=== PATIENT | female | born 1945 | race Caucasian/White ===

== ENCOUNTER → 2017-02-10 | Outpatient (CLI) | payer MEDICARE ==
[~2017-02-10] MED LIST: /BUSP5TA OR; ACET65TA PO; ANEXIA PO; CALCTAB22 OR; HYDR25TA6 OR; IBUP600T OR; LISI20TA5 OR; SIMV10TA2 OR; VIT D 2000 OR
--- NOTE | 2017-02-10 13:30 | REP ---
BILATERAL RIBS/PA CHEST, NINE VIEWS: HISTORY: Contusion. COMPARISON: 12/09/2012. The lungs are clear. The heart is normal in size. The pulmonary vasculature is normal in appearance. The bony structure is intact. IMPRESSION: No acute disease. Signed by Camron Bolton MD 02/10/2017 01:32 P
== END ==
LOC: M WUC 11:01
PROVIDERS: ATTEND Physician Assistant
DX: S20.212A Contusion of left front wall of thorax, initial encounter (principal); S20.211A Contusion of right front wall of thorax, initial encounter; X58.XXXA Exposure to other specified factors, initial encounter; Y92.89 Other specified places as the place of occurrence of the external cause; Y99.9 Unspecified external cause status; Y93.9 Activity, unspecified

== ENCOUNTER → 2017-08-26 | Outpatient (CLI) | payer MEDICARE ==
--- NOTE | 2017-08-28 06:37 | RADONC ---
RADIATION ONCOLOGY FOLLOWUP NOTE DATE: 08/26/2017 CHART NUMBER: [id number] DIAGNOSIS: Left breast cancer. STAGE: Stage I A, [id number]. DIAGNOSIS: Right breast cancer. STAGE: Stage III A, T3N1M0. ECOG PERFORMANCE STATUS: 0. FOLLOWUP NOTE: Ms. Treviño is a very pleasant, 72-year-old white female with the diagnosis of a stage I A, O2rR1P6, moderately differentiated infiltrating ductal carcinoma of the left breast as well as a stage III A, T3N1M0, moderately differentiated infiltrating ductal carcinoma of the right breast who is presenting to us today for routine followup visit 5 years post completion of external beam radiation therapy. The patient presents today reporting that she is doing quite well with no complaints at this time related to her radiation therapy or disease. She has no breast pain, chest wall pain or bone pain. REVIEW OF SYSTEMS: The patient's review of systems is noncontributory. Denies nausea, vomiting, fevers, chills, night sweats, diplopia, headaches, anxiety or depression, anorexia, weight loss, visual disturbances, chest pain, urinary or bowel difficulties, bone pain, or neurological problems. PHYSICAL EXAMINATION: The patient is a well-developed, well-nourished, 72-year-old female in no acute distress. HEENT exam is normocephalic, atraumatic. Extraocular movements are intact. There is no palpable cervical, supraclavicular, infraclavicular, axillary, or inguinal lymphadenopathy present. Lungs are clear to auscultation and percussion. Heart has a regular rate and rhythm. Abdomen is benign with no hepatosplenomegaly, masses, or tenderness. The patient's left breast is free of masses or discharge. Her right chest wall is status post mastectomy. There is no evidence of nodularity, ulceration or recurrent disease. Skeletal examination reveals no tenderness to pressure or percussion of the bony skeleton. Extremities reveal no clubbing, cyanosis, or edema. Neurologic exam is grossly intact, as is the remainder of the physical examination. ASSESSMENT: The patient is clinically KUSH at this time will be seen by us again in 1 year for further followup. She will also continue be followed by her other physicians as well. cc: Dee Dee Carney MD, FACP Sonny Tam MD
== END ==
LOC: M ONCR 10:42
PROVIDERS: ATTEND Radiology Radiation Oncology
DX: C50.111 Malignant neoplasm of central portion of right female breast (principal); C50.112 Malignant neoplasm of central portion of left female breast

== ENCOUNTER 2017-09-17 12:09 | Day surgery (SDC) | payer MEDICARE ==
[~2017-09-17] VITALS: Ht 162.6 cm; Wt 83.0 kg
[~2017-09-17 12:09] MED LIST changes: +ALEN70TA39 PO; +AMLO5TAB2 PO; +ANAS1TAB PO; +BAYE81TA7 PO; +DULE100A IN; +LIDOCAINE 1% MDV 20ML VIAL SQ PRN; +MULT1TAB18 PO; +OFLOXACIN 0.3 % (OCUFLOX) OPTH SOL 5ML OS ONE; +OMEP20CA3 PO; +OMEP40CA2 PO; +PHENYLEPHRINE 2.5% OPHTH SOL 2ML OS ONE; +PROPARACAINE 0.5% OPHTH SOL 15ML OS ONE; +TROPICAMIDE 1% OPHTH SOLN 2ML OS ONE
[2017-09-17] MEDS ORDERED: BALANCED SALT IRRIGATION SOLUTION 500ML BAG (FOR OR EYE MACHINE) As Ordered ONE (13:14)
[2017-09-17] MEDS ORDERED: LIDOCAINE 0.75%/EPINEPHRINE 0.025% IN BSS 1ML SYR INTRACAMERAL (OR ONLY) As Ordered ONE (13:14)
[2017-09-17] MEDS ORDERED: POVIDONE-IODINE 5% OPHTH PREP SOL 30ML As Ordered ONE (13:14)
[2017-09-17] MEDS ORDERED: CEFUROXIME 1MG/0.1ML INTRACAMERAL INJ As Ordered ONE (13:14)
[2017-09-17] MEDS ORDERED: ACETYLCHOLINE OPHTH SOLN 1% 2ML (MIOCHOL-E) As Ordered ONE (13:14)
[2017-09-17] MEDS ORDERED: DUOVISC (0.50ML VISCOAT/0.55ML PROVISC) OPHTH KIT As Ordered ONE (13:15)
[2017-09-17] MEDS ORDERED: MIDAZOLAM INJ 2 MG/2 ML VIAL (J2250) As Ordered ONE (13:39)
[2017-09-17] MEDS ORDERED: fentaNYL 100 MCG/2 ML INJECTION (J3010) As Ordered ONE (13:39)
[2017-09-17 15:35] VITALS: BP 131/84
--- NOTE | 2017-09-18 19:37 | RO ---
DATE OF PROCEDURE: 09/17/2017 PREOPERATIVE DIAGNOSIS: Visually significant nuclear sclerotic cataract left eye. POSTOPERATIVE DIAGNOSIS: Visually significant nuclear sclerotic cataract left eye. PROCEDURE: Cataract extraction with use of phacoemulsification and placement of intraocular lens, AU00T0 21.5, left eye. SURGEON: Pardeep Luis DO [employer]BEST[employer] WORKER HELPER: ANESTHESIA: Local with monitored anesthesia care (MAC). COMPLICATIONS: None. POSTOPERATIVE CONDITION: Stable. INDICATION FOR SURGERY: Blurred vision left eye affecting patient's activities of daily living. DESCRIPTION OF PROCEDURE: The patient was seen in the preoperative area and properly identified. The correct operative eye was identified and marked. Attention was turned to that eye. The patient received topical antibiotics in the preoperative area. The patient then received topical dilating drops consisting of tropicamide and phenylephrine. The patient was then transferred to the operating room. The correct side was re-identified. The patient received topical anesthetics and antibiotics on the surface of the eye. The eye was prepped and draped in a sterile fashion. The upper and lower eyelids were isolated with Tegaderm tape, and the lids were held open with an adjustable speculum. Using a sideport blade, a paracentesis incision was made. Intraocular preservative-free lidocaine was then injected into the anterior chamber. Viscoelastic was then injected into the anterior chamber through the paracentesis. Using a 2.4 mm sharp-tipped keratome, the anterior chamber was entered via a temporal clear corneal incision. A continuous curvilinear capsulorrhexis was created with the aid of a 26-gauge cystotome and Utrata forceps. Hydrodissection was performed with balanced salt solution (BSS) on a blunt cannula until the nucleus was freely mobile. The crystalline lens was phacoemulsified and aspirated. Additional cohesive viscoelastic was placed into the capsular bag to deepen it. A 21.5 lens was placed into the capsular bag and confirmed by visualizing the continuous curvilinear capsulorrhexis. Additional irrigation and aspiration was used to remove cortical material and remaining viscoelastic. The clear corneal incision was hydrated with BSS on a blunt cannula. The lens was well positioned. The incisions were then tested for leaks and found to be negative. The eye was then palpated for appropriate pressure and adjusted accordingly with BSS. The eyelid speculum was carefully removed. A shield was placed over the eye. The patient tolerated the procedure well and was discharged to the recovery unit in a stable condition. [facility]OSPITALJohnna
== END 2017-09-17 15:35 | disposition home or self-care (01) ==
LOC: M SDC 12:09
PROVIDERS: ATTEND Ophthalmology
DX: H25.12 Age-related nuclear cataract, left eye (principal); I10 Essential (primary) hypertension; E78.5 Hyperlipidemia, unspecified; K21.9 Gastro-esophageal reflux disease without esophagitis; F41.9 Anxiety disorder, unspecified; F32.9 Major depressive disorder, single episode, unspecified; J44.9 Chronic obstructive pulmonary disease, unspecified; Z85.3 Personal history of malignant neoplasm of breast; Z87.891 Personal history of nicotine dependence; Z79.899 Other long term (current) drug therapy
CPT/HCPCS: 66984; J2250; J3010; V2632

== ENCOUNTER 2017-11-19 07:39 | Day surgery (SDC) | payer MEDICARE ==
[2017-11-19] MEDS: PHENYLEPHRINE 2.5% OPHTH SOL 2ML OD (08:35)
[2017-11-19] MEDS: OFLOXACIN 0.3 % (OCUFLOX) OPTH SOL 5ML OD (08:36)
[2017-11-19] MEDS: TROPICAMIDE 1% OPHTH SOLN 2ML OD (08:36)
[2017-11-19] MEDS: PROPARACAINE 0.5% OPHTH SOL 15ML OD (08:36)
[2017-11-19] MEDS: POVIDONE-IODINE 5% OPHTH PREP SOL 30ML As Ordered (09:28)
[2017-11-19] MEDS: BALANCED SALT IRRIGATION SOLUTION 500ML BAG (FOR OR EYE MACHINE) As Ordered (09:30)
[2017-11-19] MEDS ORDERED: MIDAZOLAM INJ 2 MG/2 ML VIAL (J2250) As Ordered (09:30)
[2017-11-19] MEDS: LIDOCAINE 0.75%/EPINEPHRINE 0.025% IN BSS 1ML SYR INTRACAMERAL (OR ONLY) As Ordered (09:30)
[2017-11-19] MEDS: ACETYLCHOLINE OPHTH SOLN 1% 2ML (MIOCHOL-E) As Ordered (09:30)
[2017-11-19] MEDS ORDERED: fentaNYL 100 MCG/2 ML INJECTION (J3010) As Ordered (09:30)
[2017-11-19] MEDS: CEFUROXIME 1MG/0.1ML INTRACAMERAL INJ As Ordered (09:30)
[2017-11-19] MEDS: DUOVISC (0.50ML VISCOAT/0.55ML PROVISC) OPHTH KIT As Ordered (09:30)
== END 2017-11-19 10:25 | disposition home or self-care (01) ==
LOC: M SDC 07:39
DX: H25.11 Age-related nuclear cataract, right eye (principal); I10 Essential (primary) hypertension; J44.9 Chronic obstructive pulmonary disease, unspecified; K21.9 Gastro-esophageal reflux disease without esophagitis; E78.5 Hyperlipidemia, unspecified; F41.9 Anxiety disorder, unspecified; M81.0 Age-related osteoporosis without current pathological fracture; J70.1 Chronic and other pulmonary manifestations due to radiation; Z85.3 Personal history of malignant neoplasm of breast; Z92.3 Personal history of irradiation; Z92.21 Personal history of antineoplastic chemotherapy; E04.1 Nontoxic single thyroid nodule; M19.90 Unspecified osteoarthritis, unspecified site; Z79.899 Other long term (current) drug therapy; Z79.51 Long term (current) use of inhaled steroids; Z79.82 Long term (current) use of aspirin
CPT/HCPCS: 66984

== ENCOUNTER → 2018-07-13 | Outpatient (CLI) | payer MEDICARE ==
[2018-07-13 13:50] LABS: BASO # 0.1 10^3/uL (0.0-0.2); BASO % 0.9 % (0.0-1.0); EOS # 0.1 10^3/uL (0.0-0.50); EOS % 1.3 % (0.0-3.0); HEMATOCRIT 49.1 % (36.0-47.0); IMMATURE GRANULOCYTE % 0.4 % (0-3.0); LYMPH # 1.4 10^3/uL (1.5-4.5); MEAN CORPUSCULAR HEMOGLOBIN 30.7 pg (27.0-33.0); MEAN CORPUSCULAR HGB CONC 32.6 g/dl (32.0-36.5); MEAN CORPUSCULAR VOLUME 94.1 fl (80.0-96.0); MONO # 0.7 10^3/uL (0.0-0.8); MONO % 10.5 % (0.0-5.0); NEUTROPHILS # 4.4 10^3/uL (1.8-7.7); NEUTROPHILS % 65.9 % (36.0-66.0); PLATELET COUNT, AUTOMATED 241 10^3/uL (150-450); RED BLOOD COUNT 5.22 10^6/uL (4.00-5.40); RED CELL DISTRIBUTION WIDTH 13.7 % (11.5-14.5); WHITE BLOOD COUNT 6.8 10^3/uL (4.0-10.0)
[2018-07-13 13:56] LABS: D-DIMER QUANT 367.2 ng/ml (<500)
== END ==
LOC: M SMT 11:22
DX: J44.9 Chronic obstructive pulmonary disease, unspecified (principal); I51.7 Cardiomegaly
CPT/HCPCS: 85025

== ENCOUNTER → 2018-08-25 | Outpatient (CLI) | payer MEDICARE | LOC: M ONCR 09:39 | DX: Z85.3 Personal history of malignant neoplasm of breast (principal) | CPT/HCPCS: G0463 ==

== ENCOUNTER → 2018-09-29 | Outpatient (CLI) | payer MEDICARE ==
[~2018-09-29] MED LIST changes: +ADVI200T PO; -ALEN70TA39 PO; +ALEN70TA57 PO; -AMLO5TAB2 PO; +AMLO5TAB4 PO; -ANAS1TAB PO; +ANAS1TAB2 PO; +BREO1INH3 INH; +CHLO125TA PO; -LIDOCAINE 1% MDV 20ML VIAL SQ PRN; +LOSA-4; -OFLOXACIN 0.3 % (OCUFLOX) OPTH SOL 5ML OS ONE; -PHENYLEPHRINE 2.5% OPHTH SOL 2ML OS ONE; -PROPARACAINE 0.5% OPHTH SOL 15ML OS ONE; +SIMV20TA2 PO; -TROPICAMIDE 1% OPHTH SOLN 2ML OS ONE; +VENTAER PO; +VITATAB11 PO; +rescue inhaler
--- NOTE | 2018-10-01 18:31 | ECHO ---
DATE OF PROCEDURE: 09/29/2018 REFERRING PHYSICIAN: Neal Pinon MD INDICATION: Shortness of breath. HEIGHT: 165 cm WEIGHT: 146 kg 2D MEASUREMENTS: Aortic annulus: 2.2 cm Left ventricle diastole: 4.08 cm Ventricular septum: 0.90 cm Posterior wall: 1.00 cm Left atrium: 4.1 cm Aortic root: 3.1 cm Proximal ascending aorta: 4.2 cm DOPPLER MEASUREMENTS: Aortic valve velocity: 82.3 cm/s LVOT velocity: 68.4 cm/s Mitral E velocity: 41.0 cm/s Mitral A velocity: 63.7 cm/s Mitral deceleration time: 236 ms Pulmonary artery systolic pressure 48-54 mmHg. MITRAL ANNULAR TISSUE DOPPLER: E prime septal: 8.0 cm/s E prime lateral: 6.0 cm/s DESCRIPTION: Rhythm was sinus. This was a moderately technically difficult echocardiogram. This was a 2D, M-mode, color flow Doppler and pulse wave Doppler examination that included mitral annular tissue Doppler. CONCLUSIONS: 1. Normal left ventricle internal dimensions and wall thickness. Normal regional left ventricle (LV) wall motion and wall thickening. Normal LV systolic function. Left ventricular ejection fraction (LVEF) 65% by visual estimate. Grade I LV diastolic dysfunction (impaired relaxation filling pattern). 2. Mild left atrial dilatation. 3. Suggestive of moderate elevation of pulmonary artery systolic pressure. 4. Mild dilatation of the proximal ascending aorta (4.2 cm). 5. Mild aortic valve sclerosis of a three-cuspid aortic valve. 6. Very small pericardial effusion (0.4 cm over the posterior basal segment of the left ventricle).
== END ==
LOC: M CARPUL 07:53
PROVIDERS: ATTEND Internal Medicine Cardiovascular Disease
DX: I31.3 Pericardial effusion (noninflammatory) (principal); I70.0 Atherosclerosis of aorta; R06.00 Dyspnea, unspecified

== ENCOUNTER → 2018-11-24 | Outpatient (CLI) | payer MEDICARE ==
[~2018-11-24] MED LIST changes: -AMLO5TAB4 PO; +AMLO5TAB6 PO; +INDA125TA PO; -LOSA-4; +LOSA100T50; +POTA1TAB23 PO
--- NOTE | 2018-11-24 16:53 | REP ---
WHOLE BODY BONE SCAN: Following the intravenous administration of 22 mCi technetium 99m MDP, the patient's whole body is imaged in the anterior and posterior projections with multiple oblique and lateral views obtained. There is a focus of increased uptake in the left anterior 6th rib. There appears to be an area of increased uptake which is less intense and more ill-defined in the anterior right third, fourth, fifth and sixth ribs. There is mild increased uptake in the anterior ends of the right seventh through ninth ribs. There is arthritic uptake in both feet. Renal and bladder activity are seen. IMPRESSION: Focus of increased uptake in the anterior left sixth rib. Ill-defined area of increased uptake in the anterior right third through sixth ribs, as well as mild focal increased uptake in the anterior end of right seventh through ninth ribs. Metastatic lesions cannot be excluded. Recommend CT of the chest with IV contrast in order to evaluate the ribs. Electronically Signed by Peter Plata MD 11/24/2018 08:18 P
== END ==
LOC: M RAD 08:15
PROVIDERS: ATTEND Internal Medicine Hematology & Oncology
DX: M89.8X8 Other specified disorders of bone, other site (principal); C50.919 Malignant neoplasm of unspecified site of unspecified female breast; E55.9 Vitamin D deficiency, unspecified
CPT/HCPCS: 78306; A9503

== ENCOUNTER → 2018-12-15 | Outpatient (CLI) | payer MEDICARE ==
[~2018-12-15] MED LIST changes: +BUSP10TA PO; +CALCTAB41 PO
--- NOTE | 2018-12-15 15:54 | REP ---
PET/CT: History: Restaging breast carcinoma. Originally diagnosed in February of 2012 bilaterally. Rib pain on the left. Comparisons: Comparison radionuclide bone scan November 24, 2018 showed a focus of increased uptake in the left anterior 6th rib. Lesser areas of increased uptake are seen in right anterior ribs. TECHNIQUE: 64 minutes following the intravenous injection of a 8.80 mCi dose of F-18 FDG, three-dimensional PET scintigraphy is acquired from the skull base to the proximal thighs. Triplanar noncontrast CT scanning is acquired through the same anatomic range for attenuation correction, and image registration with scan parameters optimized to minimize radiation exposure to the patient. PET scintigraphy and CT datasets were fused and displayed on a workstation with multiplanar and projection display capability. PET/CT Findings: The patient is status post right mastectomy. There are clips in right axilla. There is an area of linear fibrosis in the right apex and another small area of linear fibrosis is seen in the left lung base. There are linearly aligned areas of sclerosis in the anterior left 5th and 6th and possibly 7th ribs. Similar linearly adjacent areas of subtle contour deformity and sclerosis are seen in the anterior 5th and 6th ribs on the right. These areas correspond to the areas of bone scan activity. The pattern is suggestive of healed or healing fractures. The only area of increased uptake on PET scintigraphy is the left anterior 6th rib sclerotic area where maximum standard uptake value is 2.46. Bone marrow background uptake in the vertebral column extends up to SUV values of 3.0 in this patient. The changes in the left 6th anterior rib are equivocal scintigraphically. On CT images they appear to be old fractures. No other abnormal skeletal hypermetabolic uptake is seen. There is no abnormal uptake in the pulmonary parenchyma or elsewhere in the chest. Head and neck soft tissues are unremarkable. No abnormal hypermetabolic uptake is seen in the abdomen or pelvis. Impression: PET/CT findings most compatible with healed or healing rib fractures anteriorly on both sides as discussed above. No definite evidence of metastatic disease. Electronically Signed by Aries Gar MD 12/15/2018 05:15 P
== END ==
LOC: M PLARAD 09:09
PROVIDERS: ATTEND Internal Medicine Hematology & Oncology
DX: C50.811 Malignant neoplasm of overlapping sites of right female breast (principal); C50.812 Malignant neoplasm of overlapping sites of left female breast; R07.81 Pleurodynia; Z90.11 Acquired absence of right breast and nipple
CPT/HCPCS: 78815; A9552

== ENCOUNTER → 2019-04-04 | Outpatient (CLI) | payer MEDICARE ==
[~2019-04-04] MED LIST changes: -ALEN70TA57 PO; +ALEN70TA74 PO
--- NOTE | 2019-04-04 10:22 | REP ---
Clinical: Left shoulder pain. Technique: Internal rotation, external rotation, and Y view of the left shoulder. Findings: Mild age-related cortical irregularity at the acromioclavicular joint is appreciated along with subtle suspected bulky osteophyte along the inferior rim of the glenoid. Subacromial space is normal. No acute fracture dislocation. No soft tissue calcifications or loose bodies identified. Impression: Mild/moderate arthritic changes. No evidence for calcific tendinopathy. Electronically Signed by John Solis MD 04/04/2019 10:13 A
== END ==
LOC: M RAD 09:53
PROVIDERS: ATTEND Physician Assistant Medical
DX: M25.712 Osteophyte, left shoulder (principal)

== ENCOUNTER → 2019-06-17 | Outpatient (CLI) | payer MEDICARE ==
[~2019-06-17] MED LIST changes: -OMEP20CA3 PO; +OMEP20CA4 PO
[2019-06-17 09:59] LABS: BASO % 0.8 % (0.0-1.0); EOS # 0.1 10^3/uL (0.0-0.5); EOS % 1.8 % (0.0-3.0); HEMATOCRIT 44.1 % (36.0-47.0); HEMOGLOBIN 14.5 g/dl (12.0-15.5); LYMPH # 1.3 10^3/uL (1.5-5.0); LYMPH % 24.9 % (24.0-44.0); MEAN CORPUSCULAR HEMOGLOBIN 31.6 pg (27.0-33.0); MEAN CORPUSCULAR HGB CONC 32.9 g/dl (32.0-36.5); MEAN CORPUSCULAR VOLUME 96.1 fl (80.0-96.0); MONO # 0.6 10^3/uL (0.0-0.8); MONO % 11.2 % (0.0-5.0); NEUTROPHILS # 3.1 10^3/uL (1.5-8.5); NEUTROPHILS % 60.7 % (36.0-66.0); PLATELET COUNT, AUTOMATED 213 10^3/uL (150-450); RED BLOOD COUNT 4.59 10^6/uL (4.00-5.40); WHITE BLOOD COUNT 5.1 10^3/uL (4.0-10.0)
[2019-06-17 10:27] LABS: ALBUMIN 3.9 GM/DL (3.2-5.2); ALT/SGPT 27 U/L (12-78); BILIRUBIN,TOTAL 0.6 MG/DL (0.2-1.0); BLOOD UREA NITROGEN 14 MG/DL (7-18); CALCIUM LEVEL 9.4 MG/DL (8.8-10.2); CARBON DIOXIDE LEVEL 29 MEQ/L (21-32); CHLORIDE LEVEL 106 MEQ/L (98-107); CREATININE FOR GFR 0.86 MG/DL (0.55-1.30); GLOMERULAR FILTRATION RATE > 60.0 (>39); GLUCOSE, FASTING 125 MG/DL (70-100); LDH LACTATE DEHYDROGENASE 249 U/L (84-246); POTASSIUM SERUM 3.9 MEQ/L (3.5-5.1); SODIUM LEVEL 140 MEQ/L (136-145); TOTAL PROTEIN 6.8 GM/DL (6.4-8.2)
== END ==
LOC: M LAB 08:47
PROVIDERS: ATTEND Internal Medicine Hematology & Oncology
DX: R97.1 Elevated cancer antigen 125 [CA 125] (principal); Z85.3 Personal history of malignant neoplasm of breast

== ENCOUNTER → 2019-08-13 | Outpatient (CLI) | payer MEDICARE ==
[~2019-08-13] MED LIST changes: -OMEP40CA2 PO; +OMEP40CA97 PO
--- NOTE | 2019-08-13 10:36 | REP ---
Clinical: Trauma. Technique: Frontal view of the chest with multiple views of the right hemithorax. Findings: Evidence of prior right mastectomy and axillary node dissection. Frontal view of the chest demonstrates chronic changes without acute cardiopulmonary process. Evaluation of the osseous structures is limited by osteopenia and degenerative changes. No definite acute rib fracture is appreciated although subtle nondisplaced injury cannot definitively be excluded. Impression: 1. Chronic stable changes to the chest and evidence of prior right mastectomy and axillary node dissection. 2. Osteopenia and degenerative changes limit examination. No obvious or displaced rib fracture identified. Subtle injury cannot definitively be excluded. Electronically Signed by John Solis MD 08/13/2019 10:28 A
== END ==
LOC: M WUC 10:05
PROVIDERS: ATTEND Physician Assistant
DX: M85.88 Other specified disorders of bone density and structure, other site (principal); S20.211A Contusion of right front wall of thorax, initial encounter

== ENCOUNTER → 2021-01-07 | Outpatient (CLI) | payer MEDICARE, MEDICAID ==
[~2021-01-07] MED LIST changes: -ALEN70TA74 PO; +ALEN70TA82 PO; +AMLO1TAB24 PO; -AMLO5TAB6 PO; +INCR1INH INH; +OMEP1CAP73 PO; -OMEP20CA4 PO; +POTA10TA17 PO; -SIMV20TA2 PO; +SIMV20TA22 PO; +VITA200028 PO
--- NOTE | 2021-01-07 09:52 | REPMRS ---
Patient History The patient states she had a clinical breast exam in December 2020. Patient is nulliparous. Family history of unknown cancer in mother. Taking tamoxifen for 5 years. Digital Woman Screen Mammo: January 07, 2021 - Exam #: [id number] Bilateral CC and MLO view(s) were taken. Technologist: Wanda Gonzalez Technologist Prior study comparison: September 12, 2019, left breast digital mammo screening bilat, performed at [facility]. September 08, 2018, left breast digital mammo screening bilat, performed at [facility]. September 07, 2017, left breast digital mammo screening bilat, performed at [facility]. FINDINGS: There are scattered fibroglandular densities. There has been no change in the appearance of the left breast parenchyma in the interval since the prior examination. No mass, architectural distortion, or microcalcific grouping has developed. No suspicious finding. 3-D tomosynthesis shows no additional findings. Assessment: BI-RADS/ACR category 2 mammogram. Benign Findings. Recommendation Routine screening mammogram of the left breast in 1 year. This patient's [facility] Lifetime Breast Cancer RIsk is estimated at 5.2 %. This mammogram was interpreted with the aid of an FDA-approved computer-aided dectection system. Electronically Signed By: Sergio Gar MD 01/07/21 [id number]
== END ==
LOC: M WHC 08:17
PROVIDERS: ATTEND Specialist
DX: Z12.31 Encounter for screening mammogram for malignant neoplasm of breast (principal); Z85.3 Personal history of malignant neoplasm of breast; Z90.11 Acquired absence of right breast and nipple

== ENCOUNTER → 2021-04-08 | Outpatient (CLI) | payer MEDICARE, MEDICAID ==
[~2021-04-08] MED LIST changes: +MECL-136 PO; +OMEP40CA4 PO; -OMEP40CA97 PO
--- NOTE | 2021-04-08 10:07 | REP ---
INDICATION: PERSONAL HX NICOTINE DEPENDENCE COMPARISON: 08/22/2014 TECHNIQUE: Axial noncontrast images from the thoracic inlet to the upper abdomen using low-dose lung screening technique (LDCT). FINDINGS: Chronic scarring at the right apex and to a lesser extent left apex are essentially unchanged compared to 2013. Lung alcaraz are relatively well aerated and without acute consolidation, suspicious nodule or mass. No effusion. No pneumothorax. Tracheobronchial tree is patent. Patient appears to be status post right mastectomy and axillary node dissection. IMPRESSION: Lung-RADS category 2. Stable findings. Management recommendations include annual low-dose CT surveillance. <Electronically signed by John Solis > 04/08/21 100
== END ==
LOC: M RAD 09:36
PROVIDERS: ATTEND Internal Medicine Pulmonary Disease
DX: Z12.2 Encounter for screening for malignant neoplasm of respiratory organs (principal); Z87.891 Personal history of nicotine dependence

== ENCOUNTER → 2021-05-10 | Outpatient (CLI) | payer MEDICARE, MEDICAID ==
[~2021-05-10] MED LIST changes: +E-Z-GAS II EFFERVESCENT PACKET (SODIUM BICARB./CITRIC ACID/SIMETHICONE) As Ordered ONE; +E-Z-HD 98% w/w 340GM SUSP BTL As Ordered ONE; +E-Z-PAQUE 96% w/w SUSP 176GM BTL As Ordered ONE
--- NOTE | 2021-05-10 19:35 | REP ---
INDICATION: ABD PAIN. COMPARISON: None. TECHNIQUE: The procedure was performed under the direct supervision of Dr. Gar. The images were reviewed with Dr. Gar. Liquid barium and gas producing crystals were given in the erect position as well as liquid barium in the prone oblique position in order to perform a double contrast upper GI examination. A combination of fluoroscopy, spot films and last image hold technology was utilized. 0.9 minutes of fluoro time was utilized for this procedure. FINDINGS: The mail distributor film shows no organomegaly or pathological masses. The intestinal gas pattern is non-specific. During the oral and pharyngeal stages of deglutition there is laryngeal penetration. Esophageal transport is prompt and efficient and there is no esophagitis, stricture or mucosal ring. There is a small sliding-type hiatal hernia. There is gastroesophageal reflux demonstrated to above the level of the tara. The stomach phillip are normally outlined. The rugal folds are smooth and regular. There is no gastritis neoplasm or ulcer disease. The duodenal phillip are normally outlined. The mucosal folds are smooth and regular. There is no duodenitis pancreatitis peptic ulcer disease or neoplasm. The visualized portion of the proximal small bowel appears normal in course and caliber. IMPRESSION: 1. There is laryngeal penetration. 2. There is a small sliding-type hiatal hernia. There is gastroesophageal reflux demonstrated to above the level of the tara. . <Electronically signed by Fredo Johnson > 05/10/21 183 <Electronically signed by Sergio Gar > 05/10/21 193
== END ==
LOC: M RAD 07:40
PROVIDERS: ATTEND Family Medicine
DX: K20.80 Other esophagitis without bleeding (principal); K44.9 Diaphragmatic hernia without obstruction or gangrene; K21.9 Gastro-esophageal reflux disease without esophagitis

== ENCOUNTER → 2021-11-01 | Outpatient (CLI) | payer MEDICARE, MEDICAID ==
[~2021-11-01] MED LIST changes: -E-Z-GAS II EFFERVESCENT PACKET (SODIUM BICARB./CITRIC ACID/SIMETHICONE) As Ordered ONE; -E-Z-HD 98% w/w 340GM SUSP BTL As Ordered ONE; -E-Z-PAQUE 96% w/w SUSP 176GM BTL As Ordered ONE; +LOSA100T45; -LOSA100T50
[2021-11-01 08:40] LABS: ALBUMIN 3.7 GM/DL (3.2-5.2); ALT/SGPT 38 U/L (12-78); BILIRUBIN,TOTAL 0.6 MG/DL (0.2-1.0); BLOOD UREA NITROGEN 20 MG/DL (7-18); CALCIUM LEVEL 9.5 MG/DL (8.8-10.2); CARBON DIOXIDE LEVEL 29 MEQ/L (21-32); CHLORIDE LEVEL 103 MEQ/L (98-107); CREATININE FOR GFR 0.96 MG/DL (0.55-1.30); GLOMERULAR FILTRATION RATE > 60.0 (>39); GLUCOSE, FASTING 114 MG/DL (70-100); POTASSIUM SERUM 4.1 MEQ/L (3.5-5.1); SODIUM LEVEL 141 MEQ/L (136-145)
== END ==
LOC: M LAB 07:26
PROVIDERS: ATTEND Physician Assistant
DX: I10 Essential (primary) hypertension (principal)

== ENCOUNTER → 2021-11-25 | Outpatient (CLI) | payer MEDICARE, MEDICAID | LOC: M SLEEP HO 08:15 | PROVIDERS: ATTEND Physician Assistant | DX: I51.7 Cardiomegaly (principal); G47.9 Sleep disorder, unspecified ==

== ENCOUNTER → 2022-03-12 | Outpatient (CLI) | payer MEDICARE, MEDICAID | LOC: M WHC 10:41 | PROVIDERS: ATTEND Specialist | DX: Z12.31 Encounter for screening mammogram for malignant neoplasm of breast (principal); Z92.29 Personal history of other drug therapy; Z85.3 Personal history of malignant neoplasm of breast; Z90.11 Acquired absence of right breast and nipple ==

== ENCOUNTER → 2022-05-06 | Outpatient (CLI) | payer MEDICARE, MEDICAID | LOC: M RAD 09:31 | PROVIDERS: ATTEND Internal Medicine Pulmonary Disease | DX: R91.1 Solitary pulmonary nodule (principal); Z87.891 Personal history of nicotine dependence ==

== ENCOUNTER → 2023-02-25 | Outpatient (CLI) | payer MEDICARE, MEDICAID ==
[~2023-02-25] MED LIST changes: -DULE100A IN; +INDA1.253 PO; -INDA125TA PO; -LOSA100T45; +LOSA100T46; +MOME13HF8 IN; +POTA-150 PO; -POTA10TA17 PO
[2023-02-25 14:11] LABS: BASO # 0.1 10^3/uL (0.0-0.2); BASO % 0.8 % (0.0-1.0); EOS # 0.1 10^3/uL (0.0-0.5); EOS % 1.4 % (0.0-3.0); HEMATOCRIT 47.7 % (36.0-47.0); HEMOGLOBIN 15.7 g/dl (12.0-15.5); LYMPH # 1.6 10^3/uL (1.5-5.0); LYMPH % 24.2 % (24.0-44.0); MEAN CORPUSCULAR HGB CONC 32.9 g/dl (32.0-36.5); MEAN CORPUSCULAR VOLUME 94.3 fl (80.0-96.0); MONO % 14.3 % (2.0-8.0); NEUTROPHILS # 3.9 10^3/uL (1.5-8.5); NEUTROPHILS % 58.7 % (36.0-66.0); PLATELET COUNT, AUTOMATED 155 10^3/uL (150-450); RED BLOOD COUNT 5.06 10^6/uL (4.00-5.40); WHITE BLOOD COUNT 6.7 10^3/uL (4.0-10.0)
[2023-02-25 14:43] LABS: ALBUMIN 3.9 G/DL (3.2-5.2); ALKALINE PHOSPHATASE 54 U/L (46-116); ALT/SGPT 31 U/L (7.0-40); AST/SGOT 26 U/L (<34); BILIRUBIN,TOTAL 0.5 MG/DL (0.3-1.2); BLOOD UREA NITROGEN 11 MG/DL (9-23); CALCIUM LEVEL 9.6 MG/DL (8.3-10.6); CARBON DIOXIDE LEVEL 29 MMOL/L (20-31); CHLORIDE LEVEL 106 MMOL/L (98-107); CHOLESTEROL LEVEL 162 MG/DL (<200); CHOLESTEROL RISK RATIO 2.68 (<5); CREATININE FOR GFR 0.78 MG/DL (0.55-1.30); GLOMERULAR FILTRATION RATE > 60.0 (>39); GLUCOSE, FASTING 96 MG/DL (74-106); HDL CHOLESTEROL 60.4 MG/DL (>40); LDL CHOLESTEROL 70.4 MG/DL (<100); NON-HDL-C 101.6 MG/DL; POTASSIUM SERUM 3.8 MMOL/L (3.5-5.1); SODIUM LEVEL 141 MMOL/L (136-145); TOTAL PROTEIN 6.5 G/DL (5.7-8.2); TRIGLYCERIDES LEVEL 156 MG/DL (<150)
== END ==
LOC: M PLALAB 09:58
PROVIDERS: ATTEND Family Medicine
DX: E78.5 Hyperlipidemia, unspecified (principal); I10 Essential (primary) hypertension; Z85.3 Personal history of malignant neoplasm of breast

== ENCOUNTER → 2023-03-13 | Outpatient (CLI) | payer MEDICARE, MEDICAID | LOC: M WHC 09:53 | PROVIDERS: ATTEND Family Medicine | DX: Z12.31 Encounter for screening mammogram for malignant neoplasm of breast (principal); Z85.3 Personal history of malignant neoplasm of breast ==

== ENCOUNTER → 2023-06-18 | Outpatient (CLI) | payer MEDICARE, MEDICAID ==
[~2023-06-18] MED LIST changes: +EQL50TAB2 PO; +ESSETAB4 PO; +LEXA1TAB PO; +ZINC1CAP PO
== END ==
LOC: M RAD 10:15
PROVIDERS: ATTEND Internal Medicine Pulmonary Disease
DX: Z12.2 Encounter for screening for malignant neoplasm of respiratory organs (principal); Z87.891 Personal history of nicotine dependence

== ENCOUNTER → 2024-03-15 | Outpatient (CLI) | payer MEDICARE, MEDICAID ==
[2024-03-15 13:18] LABS: HEMATOCRIT 47.3 % (36.0-47.0); HEMOGLOBIN 15.7 g/dl (12.0-15.5); MEAN CORPUSCULAR HEMOGLOBIN 31.3 pg (27.0-33.0); MEAN CORPUSCULAR HGB CONC 33.2 g/dl (32.0-36.5); MEAN CORPUSCULAR VOLUME 94.4 fl (80.0-96.0); PLATELET COUNT, AUTOMATED 211 10^3/uL (150-450); RED BLOOD COUNT 5.01 10^6/uL (4.00-5.40)
[2024-03-15 13:21] LABS: ALBUMIN 3.5 G/DL (3.2-5.2); ALKALINE PHOSPHATASE 70 U/L (46-116); ALT/SGPT 22 U/L (7.0-40); AST/SGOT 15 U/L (<34); BILIRUBIN,TOTAL 0.6 MG/DL (0.3-1.2); BLOOD UREA NITROGEN 13 MG/DL (9-23); CALCIUM LEVEL 9.4 MG/DL (8.3-10.6); CARBON DIOXIDE LEVEL 28 MMOL/L (20-31); CHLORIDE LEVEL 104 MMOL/L (98-107); CHOLESTEROL LEVEL 165 MG/DL (<200); CHOLESTEROL RISK RATIO 3.41 (<5); CREATININE FOR GFR 0.78 MG/DL (0.55-1.30); GLOMERULAR FILTRATION RATE > 60.0 (>39); GLUCOSE, FASTING 187 MG/DL (74-106); HDL CHOLESTEROL 48.3 MG/DL (>40); LDL CHOLESTEROL 89.9 MG/DL (<100); NON-HDL-C 116.7 MG/DL; POTASSIUM SERUM 3.8 MMOL/L (3.5-5.1); SODIUM LEVEL 140 MMOL/L (136-145); TOTAL PROTEIN 6.6 G/DL (5.7-8.2); TRIGLYCERIDES LEVEL 134 MG/DL (<150)
== END ==
LOC: M PLALAB 09:21
PROVIDERS: ATTEND Family Medicine
DX: I10 Essential (primary) hypertension (principal); E78.5 Hyperlipidemia, unspecified; K21.9 Gastro-esophageal reflux disease without esophagitis

== ENCOUNTER 2024-05-20 02:11 | Inpatient (IN) | payer MEDICARE, MEDICAID ==
[~2024-05-20] VITALS: Ht 165.1 cm; Wt 84.7 kg
[~2024-05-20 02:11] MED LIST changes: -LOSA100T46; +LOSA100T46 PO
[2024-05-20 02:50] LABS: BASO # 0.1 10^3/uL (0.0-0.2); BASO % 0.6 % (0.0-1.0); EOS # 0.1 10^3/uL (0.0-0.5); EOS % 0.9 % (0.0-3.0); HEMATOCRIT 45.3 % (36.0-47.0); HEMOGLOBIN 15.5 g/dl (12.0-15.5); LYMPH # 1.3 10^3/uL (1.5-5.0); LYMPH % 15.1 % (24.0-44.0); MEAN CORPUSCULAR HGB CONC 34.2 g/dl (32.0-36.5); MEAN CORPUSCULAR VOLUME 93.4 fl (80.0-96.0); MONO # 1.1 10^3/uL (0.0-0.8); MONO % 12.5 % (2.0-8.0); NEUTROPHILS # 6.3 10^3/uL (1.5-8.5); NEUTROPHILS % 70.3 % (36.0-66.0); PLATELET COUNT, AUTOMATED 195 10^3/uL (150-450); RED BLOOD COUNT 4.85 10^6/uL (4.00-5.40); WHITE BLOOD COUNT 8.9 10^3/uL (4.0-10.0)
[2024-05-20 02:52] LABS: APPEARANCE, URINE CLOUDY (CLEAR); BACTERIA, URINE AUTO NEGATIVE (NEGATIVE); BILIRUBIN, URINE AUTO NEGATIVE (NEGATIVE); BLOOD, URINE BLOOD NEGATIVE (NEGATIVE); COLOR, URINE AMBER (YELLOW); GLUCOSE, URINE (UA) AUTO NEGATIVE (NEGATIVE); KETONE, URINE AUTO NEGATIVE (NEGATIVE); LEUKOCYTE ESTERASE, URINE AUTO 3+ (NEGATIVE); MUCUS, URINE SMALL (NEGATIVE); NITRITE, URINE AUTO NEGATIVE (NEGATIVE); PROTEIN, URINE AUTO 1+ mg/dL (NEGATIVE); RBC, URINE AUTO 10 /HPF (0-3); SQUAMOUS EPITHELIAL CELL UR AU 4 /HPF (0-6); TRANSITIONAL EPITHELIAL AUTO 2 /HPF; WBC, URINE AUTO TNTC /HPF (0-3)
[2024-05-20 03:14] LABS: ALBUMIN 3.7 G/DL (3.2-5.2); BILIRUBIN,DIRECT 4.2 MG/DL (<0.4); BILIRUBIN,TOTAL 5.6 MG/DL (0.3-1.2); CALCIUM LEVEL 9.4 MG/DL (8.3-10.6); CREATININE FOR GFR 1.81 MG/DL (0.55-1.30); GLOMERULAR FILTRATION RATE 28.9 (>39); POTASSIUM SERUM 3.6 MMOL/L (3.5-5.1); TOTAL PROTEIN 6.8 G/DL (5.7-8.2)
[2024-05-20] MEDS ORDERED: ISOVUE-370 76% 100ML VIAL As Ordered ONE (04:01)
[2024-05-20] MEDS: MORPHINE 4 MG/ML 1ML VIAL IV PRN (04:29)
[2024-05-20] MEDS: ONDANSETRON 4MG 2ML VIAL IV ONE (04:29)
[2024-05-20 04:33] LABS: INR 1.06; PARTIAL THROMBOPLASTIN TIME 23.2 SECONDS (24.8-34.2); PROTHROMBIN TIME 13.5 SECONDS (12.5-14.5)
[2024-05-20] MEDS: LR 1,000 ML IV SCH ×2 (04:50→22:05)
[2024-05-20] MEDS: PIPERACILLIN/TAZOBACTAM SOD 4.5 GM in D5W MINI-BAG PLUS 50 ML IV ONE (05:59)
[2024-05-20] MEDS ORDERED: MOM 30ML SUSPENSION UDC PO PRN (06:05)
[2024-05-20] MEDS ORDERED: MULT-40 PO (06:24)
[2024-05-20] MEDS ORDERED: HOME MED LIST COMPLETE! XX SCH (06:25)
[2024-05-20] MEDS: INDAPAMIDE 1.25MG TABLET PO SCH (09:00)
[2024-05-20] MEDS: busPIRone 10 MG TAB PO SCH (09:00)
[2024-05-20] MEDS: ESCITALOPRAM OXALATE 10 MG TAB (LEXAPRO) PO SCH (09:00)
[2024-05-20] MEDS: HEPARIN SOD (PORCINE) 5000UNITS/ML 1ML VIAL/SYRINGE SC SCH (09:00)
[2024-05-20 09:08] VITALS: BP 83/54
[2024-05-20 09:55] VITALS: BP 92/57
[2024-05-20] MEDS: NS 500 ML IV ONE (10:25)
[2024-05-20] MEDS: cefTRIAXone SOD 1 GM in D5W MINI-BAG PLUS 50 ML IV SCH (11:35)
[2024-05-20] MEDS ORDERED: ALBUTEROL 90 MCG/ACT 8GM HFA INHALER XX PRN (11:55)
[2024-05-20 12:00] VITALS: BP 130/77; TEMP 97.9; O2SAT 95
[2024-05-20 13:00] LABS: BASO % 0.7 % (0.0-1.0); EOS # 0.1 10^3/uL (0.0-0.5); HEMATOCRIT 41.8 % (36.0-47.0); LYMPH # 1.1 10^3/uL (1.5-5.0); LYMPH % 18.8 % (24.0-44.0); MEAN CORPUSCULAR HEMOGLOBIN 31.4 pg (27.0-33.0); MEAN CORPUSCULAR HGB CONC 33.5 g/dl (32.0-36.5); MEAN CORPUSCULAR VOLUME 93.7 fl (80.0-96.0); MONO # 0.8 10^3/uL (0.0-0.8); MONO % 14.1 % (2.0-8.0); NEUTROPHILS # 3.8 10^3/uL (1.5-8.5); NEUTROPHILS % 64.6 % (36.0-66.0); PLATELET COUNT, AUTOMATED 159 10^3/uL (150-450); RED BLOOD COUNT 4.46 10^6/uL (4.00-5.40); WHITE BLOOD COUNT 5.9 10^3/uL (4.0-10.0)
[2024-05-20 13:24] LABS: C REACTIVE PROTEIN QUANTITATIV 1.7 MG/DL (<1.0)
[2024-05-20 13:28] LABS: ALBUMIN 3.1 G/DL (3.2-5.2); BILIRUBIN,DIRECT 3.3 MG/DL (<0.4); BILIRUBIN,TOTAL 4.4 MG/DL (0.3-1.2); CALCIUM LEVEL 8.4 MG/DL (8.3-10.6); CREATININE FOR GFR 2.39 MG/DL (0.55-1.30); POTASSIUM SERUM 3.9 MMOL/L (3.5-5.1)
[2024-05-20] MEDS: ISOVUE-300 61% 100ML VIAL As Ordered ONE (16:16)
[2024-05-20 16:18] VITALS: BP 102/66; TEMP 96.8; O2SAT 92
[2024-05-20] MEDS ORDERED: ONDANSETRON 4MG 2ML VIAL As Ordered ONE (19:01)
[2024-05-20] MEDS ORDERED: ROCURONIUM BROMIDE 50MG/5ML VIAL As Ordered ONE (19:01)
[2024-05-20] MEDS ORDERED: LIDOCAINE 2% 100MG/5ML SDV (FOR ANES.) As Ordered ONE (19:01)
[2024-05-20] MEDS ORDERED: propofoL 200 MG/20 ML VIAL As Ordered ONE (19:01)
[2024-05-20] MEDS ORDERED: fentaNYL 100 MCG/2 ML INJECTION As Ordered ONE (19:01)
[2024-05-20] MEDS: GLUCAGON INJ 1MG VIAL As Ordered ONE (21:03)
[2024-05-20] MEDS ORDERED: SUGAMMADEX SODIUM 500 MG/5 ML VIAL (BRIDION) As Ordered ONE (21:58)
[2024-05-20] MEDS ORDERED: HYDROMORPHONE HCL 0.5 MG/ 0.5 ML SYRINGE IV PRN (22:05)
[2024-05-20] MEDS ORDERED: ONDANSETRON 4MG 2ML VIAL IV PRN (22:05)
[2024-05-20] MEDS ORDERED: fentaNYL 100 MCG/2 ML INJECTION IV PRN (22:05)
[2024-05-20] MEDS ORDERED: oxyCODONE 5MG TAB PO PRN (22:05)
[2024-05-20 22:55] VITALS: BP 145/82; TEMP 96.6; O2SAT 94
[2024-05-20] MEDS: ONDANSETRON 4MG 2ML VIAL IV PRN (23:10)
[2024-05-20 23:30] VITALS: BP 146/83; TEMP 96.8; O2SAT 93
[2024-05-21] VITALS (7 sets, daily range): BP systolic 104–148; BP diastolic 60–86; TEMP 96.8–97.9; O2SAT 90–95
[2024-05-21] MEDS: PANTOPRAZOLE 40MG VIAL IV SCH (00:16)
[2024-05-21] MEDS: MORPHINE 4 MG/ML 1ML VIAL IV PRN (01:25)
[2024-05-21 06:43] LABS: HEMATOCRIT 39.8 % (36.0-47.0); HEMOGLOBIN 13.2 g/dl (12.0-15.5); MEAN CORPUSCULAR HEMOGLOBIN 31.6 pg (27.0-33.0); MEAN CORPUSCULAR HGB CONC 33.2 g/dl (32.0-36.5); MEAN CORPUSCULAR VOLUME 95.2 fl (80.0-96.0); PLATELET COUNT, AUTOMATED 152 10^3/uL (150-450); RED BLOOD COUNT 4.18 10^6/uL (4.00-5.40); WHITE BLOOD COUNT 7.1 10^3/uL (4.0-10.0)
[2024-05-21 07:04] LABS: ALBUMIN 2.9 G/DL (3.2-5.2); BILIRUBIN,TOTAL 2.3 MG/DL (0.3-1.2); CALCIUM LEVEL 8.2 MG/DL (8.3-10.6); CREATININE FOR GFR 2.32 MG/DL (0.55-1.30); GLOMERULAR FILTRATION RATE 21.7 (>39); MAGNESIUM LEVEL 1.6 MG/DL (1.8-2.4); POTASSIUM SERUM 3.6 MMOL/L (3.5-5.1); TOTAL PROTEIN 5.6 G/DL (5.7-8.2)
[2024-05-21] MEDS: MAG SULF 1GM/100ML (MAG RUN) 1 GM in IV 1 EA IV SCH (09:39)
[2024-05-21] MEDS: LIDOCAINE VISCOUS 2% SOLN 15ML UDC PO SCH (12:00)
[2024-05-21] MEDS: MAALOX 30 ML SUSP *UDC PO SCH (12:00)
[2024-05-21] MEDS: MORPHINE 2 MG/ML 1ML VIAL IV PRN (23:31)
[2024-05-22 05:00] VITALS: BP 138/60; TEMP 96.8; O2SAT 91
[2024-05-22 07:00] LABS: BASO % 0.4 % (0.0-1.0); EOS # 0.2 10^3/uL (0.0-0.5); HEMATOCRIT 37.2 % (36.0-47.0); HEMOGLOBIN 12.7 g/dl (12.0-15.5); LYMPH # 0.9 10^3/uL (1.5-5.0); LYMPH % 10.5 % (24.0-44.0); MEAN CORPUSCULAR HEMOGLOBIN 32.5 pg (27.0-33.0); MEAN CORPUSCULAR HGB CONC 34.1 g/dl (32.0-36.5); MEAN CORPUSCULAR VOLUME 95.1 fl (80.0-96.0); MONO % 11.7 % (2.0-8.0); NEUTROPHILS # 6.3 10^3/uL (1.5-8.5); NEUTROPHILS % 74.5 % (36.0-66.0); PLATELET COUNT, AUTOMATED 139 10^3/uL (150-450); RED BLOOD COUNT 3.91 10^6/uL (4.00-5.40); WHITE BLOOD COUNT 8.5 10^3/uL (4.0-10.0)
[2024-05-22 07:21] LABS: C REACTIVE PROTEIN QUANTITATIV 8.3 MG/DL (<1.0)
[2024-05-22 07:22] LABS: ALBUMIN 2.7 G/DL (3.2-5.2); BILIRUBIN,TOTAL 1.6 MG/DL (0.3-1.2); CALCIUM LEVEL 7.6 MG/DL (8.3-10.6); CREATININE FOR GFR 1.41 MG/DL (0.55-1.30); GLOMERULAR FILTRATION RATE 38.6 (>39); MAGNESIUM LEVEL 1.7 MG/DL (1.8-2.4); POTASSIUM SERUM 3.3 MMOL/L (3.5-5.1); TOTAL PROTEIN 5.3 G/DL (5.7-8.2)
[2024-05-22 08:13] VITALS: BP 132/85; TEMP 97.9; O2SAT 93
[2024-05-22] MEDS ORDERED: BISACODYL 10MG SUPP PR PRN (08:30)
[2024-05-22] MEDS: MAGNESIUM OXIDE 400MG TAB (MAG-OX) PO SCH (09:57)
[2024-05-22] MEDS: SENOKOT S TAB PO SCH (09:57)
[2024-05-22] MEDS: POTASSIUM CHLORIDE 10MEQ SR TABLET PO SCH (09:58)
[2024-05-22] MEDS ORDERED: MAALOX 30 ML SUSP *UDC PO PRN (10:27)
[2024-05-22] MEDS: SIMETHICONE 80MG CHEW TAB PO SCH (11:58)
[2024-05-22 12:07] VITALS: BP 147/90; TEMP 97.9; O2SAT 93
[2024-05-22 17:59] VITALS: BP 144/86; TEMP 97.5; O2SAT 92
[2024-05-22 20:00] VITALS: BP 144/77; TEMP 97.2; O2SAT 92
[2024-05-22 21:33] VITALS: BP 144/77; TEMP 97.2; O2SAT 94
[2024-05-23 00:54] VITALS: BP 150/89; TEMP 97.2; O2SAT 95
[2024-05-23 04:32] VITALS: BP 147/84; TEMP 97.7
[2024-05-23 06:45] LABS: ALBUMIN 2.6 G/DL (3.2-5.2); ALKALINE PHOSPHATASE 143 U/L (46-116); ALT/SGPT 208 U/L (7.0-40); AST/SGOT 48 U/L (<34); BILIRUBIN,TOTAL 1.5 MG/DL (0.3-1.2); BLOOD UREA NITROGEN 13 MG/DL (9-23); CALCIUM LEVEL 7.9 MG/DL (8.3-10.6); CARBON DIOXIDE LEVEL 26 MMOL/L (20-31); CHLORIDE LEVEL 106 MMOL/L (98-107); CREATININE FOR GFR 0.93 MG/DL (0.55-1.30); GLOMERULAR FILTRATION RATE > 60.0 (>39); GLUCOSE, FASTING 132 MG/DL (74-106); POTASSIUM SERUM 3.5 MMOL/L (3.5-5.1); SODIUM LEVEL 138 MMOL/L (136-145); TOTAL PROTEIN 5.5 G/DL (5.7-8.2)
[2024-05-23 08:00] VITALS: BP 138/88; TEMP 97; O2SAT 94
[2024-05-23 08:05] LABS: MAGNESIUM LEVEL 1.5 MG/DL (1.8-2.4)
[2024-05-23] MEDS: CEFDINIR 300 MG CAP (OMNICEF) PO SCH (08:43)
[2024-05-23] MEDS: BISACODYL 10MG SUPP PR SCH (08:44)
[2024-05-23 12:00] VITALS: BP 133/76; TEMP 96.8; O2SAT 93
[2024-05-23] MEDS: MAG SULF 1GM/100ML (MAG RUN) 1 GM in IV 1 EA IV SCH (14:44)
[2024-05-23 15:54] LABS: CA19-9 TUMOR MARKER,CARBOHYDRA 8926.4 U/ML (<35.0)
[2024-05-23 16:00] VITALS: BP 124/88; TEMP 97; O2SAT 95
[2024-05-23] MEDS ORDERED: PROHANCE 279.3MG/ML 15ML VIAL As Ordered ONE (17:52)
[2024-05-23 21:40] VITALS: BP_SYST 148; TEMP 97.7; O2SAT 91
[2024-05-24] VITALS (7 sets, daily range): BP systolic 110–144; BP diastolic 65–93; TEMP 97.2–98.1; O2SAT 90–98
[2024-05-24 06:29] LABS: ALBUMIN 2.6 G/DL (3.2-5.2); ALKALINE PHOSPHATASE 127 U/L (46-116); ALT/SGPT 150 U/L (7.0-40); AST/SGOT 31 U/L (<34); BILIRUBIN,TOTAL 1.1 MG/DL (0.3-1.2); BLOOD UREA NITROGEN 12 MG/DL (9-23); CALCIUM LEVEL 8.1 MG/DL (8.3-10.6); CARBON DIOXIDE LEVEL 29 MMOL/L (20-31); CHLORIDE LEVEL 103 MMOL/L (98-107); CREATININE FOR GFR 0.82 MG/DL (0.55-1.30); GLOMERULAR FILTRATION RATE > 60.0 (>39); GLUCOSE, FASTING 147 MG/DL (74-106); POTASSIUM SERUM 3.9 MMOL/L (3.5-5.1); SODIUM LEVEL 136 MMOL/L (136-145); TOTAL PROTEIN 5.4 G/DL (5.7-8.2)
[2024-05-24] MEDS: ACETAMINOPHEN TAB 650MG DOSE (2X325MG) PO PRN (19:52)
[2024-05-25 03:49] VITALS: BP 110/67; TEMP 97.7; O2SAT 85
[2024-05-25 06:56] LABS: ALBUMIN 2.7 G/DL (3.2-5.2); ALKALINE PHOSPHATASE 117 U/L (46-116); ALT/SGPT 124 U/L (7.0-40); AST/SGOT 29 U/L (<34); BILIRUBIN,TOTAL 1.1 MG/DL (0.3-1.2); BLOOD UREA NITROGEN 10 MG/DL (9-23); CALCIUM LEVEL 8.4 MG/DL (8.3-10.6); CARBON DIOXIDE LEVEL 28 MMOL/L (20-31); CHLORIDE LEVEL 103 MMOL/L (98-107); CREATININE FOR GFR 0.82 MG/DL (0.55-1.30); GLOMERULAR FILTRATION RATE > 60.0 (>39); GLUCOSE, FASTING 130 MG/DL (74-106); POTASSIUM SERUM 3.4 MMOL/L (3.5-5.1); SODIUM LEVEL 139 MMOL/L (136-145); TOTAL PROTEIN 5.8 G/DL (5.7-8.2)
[2024-05-25 08:00] VITALS: BP 159/87; TEMP 97.5; O2SAT 95
[2024-05-25] MEDS ORDERED: MAGN400T2 PO (10:30)
[2024-05-25] MEDS ORDERED: CEFD300CAP PO (10:30)
[2024-05-25] MEDS: POTASSIUM CHLORIDE 10MEQ SR TABLET PO ONE (11:55)
[2024-05-25 12:00] VITALS: BP 165/91; TEMP 97.7; O2SAT 97
== END 2024-05-25 14:08 | disposition home health service (06) | DRG 435 ==
LOC: M ED 02:11 → M ED INP 06:05 → M MS5PR 10:07
PROVIDERS: ADMIT Internal Medicine; ATTEND Student in an Organized Health Care Education/Training Program
PROC: 0FD Hepatobiliary System and Pancreas, Extraction (ICD-10-PCS; 2024-05-20)
PROC: 0F798DZ Dilation of Common Bile Duct with Intraluminal Device, Via Natural or Artificial Opening Endoscopic (ICD-10-PCS; principal; 2024-05-20 17:30)
DX: C25.0 Malignant neoplasm of head of pancreas (principal); K83.1 Obstruction of bile duct; N17.9 Acute kidney failure, unspecified; N39.0 Urinary tract infection, site not specified; K86.2 Cyst of pancreas; C25.9 Malignant neoplasm of pancreas, unspecified; R10.13 Epigastric pain; I12.9 Hypertensive chronic kidney disease with stage 1 through stage 4 chronic kidney disease, or unspecified chronic kidney disease; E78.5 Hyperlipidemia, unspecified; F41.9 Anxiety disorder, unspecified; M81.0 Age-related osteoporosis without current pathological fracture; J44.9 Chronic obstructive pulmonary disease, unspecified; K21.9 Gastro-esophageal reflux disease without esophagitis; M19.90 Unspecified osteoarthritis, unspecified site; E83.42 Hypomagnesemia; E87.6 Hypokalemia; N18.9 Chronic kidney disease, unspecified; F32.A Depression, unspecified; R93.2 Abnormal findings on diagnostic imaging of liver and biliary tract; D49.0 Neoplasm of unspecified behavior of digestive system; D13.6 Benign neoplasm of pancreas; I10 Essential (primary) hypertension; R63.4 Abnormal weight loss; K76.0 Fatty (change of) liver, not elsewhere classified; R74.01 Elevation of levels of liver transaminase levels; R94.5 Abnormal results of liver function studies; E80.6 Other disorders of bilirubin metabolism; K86.89 Other specified diseases of pancreas; Z85.3 Personal history of malignant neoplasm of breast; Z90.11 Acquired absence of right breast and nipple; Z87.891 Personal history of nicotine dependence

== ENCOUNTER → 2024-06-09 | Outpatient (REF) | payer MEDICARE, MEDICAID ==
[~2024-06-09] MED LIST changes: +CEFD300CAP PO; +HYDR-4429 PO; +LEVO1TAB40 PO; +LINE1TAB6 PO; +LOSA50TA28 PO; +MAGN1TAB26 PO; +MAGN400T2 PO; +METF-877 PO; +METF10004 PO; +METR-265 PO; +MULT-40 PO; +PERCOCET PO; +PROBCAP14 PO
[2024-06-09 13:24] LABS: BASO # 0.1 10^3/uL (0.0-0.2); BASO % 0.8 % (0.0-1.0); EOS # 0.1 10^3/uL (0.0-0.5); EOS % 1.3 % (0.0-3.0); HEMATOCRIT 43.6 % (36.0-47.0); HEMOGLOBIN 14.3 g/dl (12.0-15.5); LYMPH % 16.2 % (24.0-44.0); MEAN CORPUSCULAR HEMOGLOBIN 31.3 pg (27.0-33.0); MEAN CORPUSCULAR HGB CONC 32.8 g/dl (32.0-36.5); MEAN CORPUSCULAR VOLUME 95.4 fl (80.0-96.0); MONO # 0.6 10^3/uL (0.0-0.8); MONO % 10.1 % (2.0-8.0); NEUTROPHILS # 4.4 10^3/uL (1.5-8.5); NEUTROPHILS % 70.8 % (36.0-66.0); PLATELET COUNT, AUTOMATED 192 10^3/uL (150-450); RED BLOOD COUNT 4.57 10^6/uL (4.00-5.40); WHITE BLOOD COUNT 6.2 10^3/uL (4.0-10.0)
[2024-06-09 13:47] LABS: ALBUMIN 3.5 G/DL (3.2-5.2); ALKALINE PHOSPHATASE 93 U/L (46-116); ALT/SGPT 36 U/L (7.0-40); AST/SGOT 33 U/L (<34); BILIRUBIN,TOTAL 0.9 MG/DL (0.3-1.2); BLOOD UREA NITROGEN 16 MG/DL (9-23); CALCIUM LEVEL 9.2 MG/DL (8.3-10.6); CARBON DIOXIDE LEVEL 24 MMOL/L (20-31); CHLORIDE LEVEL 105 MMOL/L (98-107); CREATININE FOR GFR 0.93 MG/DL (0.55-1.30); GLOMERULAR FILTRATION RATE > 60.0 (>39); GLUCOSE, FASTING 307 MG/DL (74-106); MAGNESIUM LEVEL 1.5 MG/DL (1.8-2.4); POTASSIUM SERUM 3.8 MMOL/L (3.5-5.1); SODIUM LEVEL 138 MMOL/L (136-145); TOTAL PROTEIN 6.9 G/DL (5.7-8.2)
== END ==
LOC: M SHH 13:06
PROVIDERS: ATTEND Specialist
DX: K86.89 Other specified diseases of pancreas (principal); R97.0 Elevated carcinoembryonic antigen [CEA]

== ENCOUNTER → 2024-06-20 | Outpatient (CLI) | payer MEDICARE, MEDICAID ==
[~2024-06-20] MED LIST changes: -LEVO1TAB40 PO; -LINE1TAB6 PO; -METR-265 PO; -PROBCAP14 PO
== END ==
LOC: M PLARAD 10:57
PROVIDERS: ATTEND Dietitian, Registered
DX: C25.0 Malignant neoplasm of head of pancreas (principal)
CPT/HCPCS: 78815; A9552

== ENCOUNTER 2024-06-24 23:18 | Emergency (ER) | payer MEDICARE, MEDICAID ==
[~2024-06-24 23:18] MED LIST changes: -ISOVUE-300 61% 100ML VIAL As Ordered ONE; -LIDOCAINE 1% MDV 20ML VIAL As Ordered ONE; -LIDOCAINE 2% 100MG/5ML SDV (FOR ANES.) As Ordered ONE; -METF-877 PO; -MIDAZOLAM INJ 2MG/2ML VIAL As Ordered ONE; -NS 1,000 ML IV SCH; -ONDANSETRON 4MG 2ML VIAL As Ordered ONE; -PHENYLephrine 500MCG 5ML (100MCG/ML) SYRINGE As Ordered ONE; -ROCURONIUM BROMIDE 50MG/5ML VIAL As Ordered ONE; -SUGAMMADEX SODIUM 500 MG/5 ML VIAL (BRIDION) As Ordered ONE; -fentaNYL 100 MCG/2 ML INJECTION As Ordered ONE; -propofoL 200 MG/20 ML VIAL As Ordered ONE
[2024-06-24] MEDS ORDERED: ONDANSETRON 4MG 2ML VIAL As Ordered ONE (23:49)
[2024-06-24] MEDS: ONDANSETRON 4MG 2ML VIAL IV ONE (23:50)
[2024-06-25 01:08] LABS: BASO % 0.2 % (0.0-1.0); EOS % 0.1 % (0.0-3.0); HEMATOCRIT 43.3 % (36.0-47.0); HEMOGLOBIN 14.9 g/dl (12.0-15.5); LYMPH # 0.6 10^3/uL (1.5-5.0); LYMPH % 6.9 % (24.0-44.0); MEAN CORPUSCULAR HEMOGLOBIN 31.6 pg (27.0-33.0); MEAN CORPUSCULAR HGB CONC 34.4 g/dl (32.0-36.5); MEAN CORPUSCULAR VOLUME 91.7 fl (80.0-96.0); MONO # 0.3 10^3/uL (0.0-0.8); MONO % 2.9 % (2.0-8.0); NEUTROPHILS # 8.3 10^3/uL (1.5-8.5); NEUTROPHILS % 89.5 % (36.0-66.0); PLATELET COUNT, AUTOMATED 181 10^3/uL (150-450); RED BLOOD COUNT 4.72 10^6/uL (4.00-5.40); WHITE BLOOD COUNT 9.3 10^3/uL (4.0-10.0)
[2024-06-25 01:20] LABS: LIPASE 49 U/L (12-53)
[2024-06-25 01:23] LABS: ALBUMIN 3.6 G/DL (3.2-5.2); ALKALINE PHOSPHATASE 152 U/L (46-116); ALT/SGPT 185 U/L (7.0-40); AST/SGOT 311 U/L (<34); BILIRUBIN,DIRECT 2.2 MG/DL (<0.4); BILIRUBIN,TOTAL 3.3 MG/DL (0.3-1.2); BLOOD UREA NITROGEN 13 MG/DL (9-23); CALCIUM LEVEL 9.3 MG/DL (8.3-10.6); CARBON DIOXIDE LEVEL 22 MMOL/L (20-31); CHLORIDE LEVEL 103 MMOL/L (98-107); CREATININE FOR GFR 0.81 MG/DL (0.55-1.30); GLOMERULAR FILTRATION RATE > 60.0 (>39); GLUCOSE, FASTING 177 MG/DL (74-106); POTASSIUM SERUM 3.9 MMOL/L (3.5-5.1); SODIUM LEVEL 134 MMOL/L (136-145); TOTAL PROTEIN 6.7 G/DL (5.7-8.2)
[2024-06-25] MEDS: ACETAMINOPHEN *IV* 500 MG in IV 1 EA IV ONE (02:27)
[2024-06-25] MEDS: NS 500 ML IV ONE (02:40)
[2024-06-25 03:43] VITALS: BP 101/65; TEMP 99.2; O2SAT 94
== END 2024-06-25 04:18 | disposition home or self-care (01) ==
LOC: M ED 23:18
DX: R94.5 Abnormal results of liver function studies (principal); G89.18 Other acute postprocedural pain; J44.9 Chronic obstructive pulmonary disease, unspecified; F32.A Depression, unspecified; Z79.51 Long term (current) use of inhaled steroids; Z79.84 Long term (current) use of oral hypoglycemic drugs; Z79.810 Long term (current) use of selective estrogen receptor modulators (SERMs); Z79.899 Other long term (current) drug therapy

== ENCOUNTER → 2024-06-24 | Outpatient (CLI) | payer MEDICARE, MEDICAID ==
[~2024-06-24] MED LIST changes: +ISOVUE-300 61% 100ML VIAL As Ordered ONE; +LIDOCAINE 1% MDV 20ML VIAL As Ordered ONE; +LIDOCAINE 2% 100MG/5ML SDV (FOR ANES.) As Ordered ONE; +MIDAZOLAM INJ 2MG/2ML VIAL As Ordered ONE; +NS 1,000 ML IV SCH; +ONDANSETRON 4MG 2ML VIAL As Ordered ONE; +PHENYLephrine 500MCG 5ML (100MCG/ML) SYRINGE As Ordered ONE; +ROCURONIUM BROMIDE 50MG/5ML VIAL As Ordered ONE; +SUGAMMADEX SODIUM 500 MG/5 ML VIAL (BRIDION) As Ordered ONE; +fentaNYL 100 MCG/2 ML INJECTION As Ordered ONE; +propofoL 200 MG/20 ML VIAL As Ordered ONE
[2024-06-24 10:13] VITALS: TEMP 97.6
[2024-06-24 10:38] LABS: HEMOGLOBIN 15.3 g/dl (12.0-15.5); MEAN CORPUSCULAR HGB CONC 33.3 g/dl (32.0-36.5); MEAN CORPUSCULAR VOLUME 93.3 fl (80.0-96.0); PLATELET COUNT, AUTOMATED 205 10^3/uL (150-450); RED BLOOD COUNT 4.93 10^6/uL (4.00-5.40); WHITE BLOOD COUNT 7.6 10^3/uL (4.0-10.0)
[2024-06-24 10:50] LABS: INR 1.04; PROTHROMBIN TIME 13.3 SECONDS (12.5-14.5)
[2024-06-24 13:30] VITALS: BP 132/88; O2SAT 94
== END ==
LOC: M IRPRO 10:06
PROVIDERS: ATTEND Dietitian, Registered
DX: C25.9 Malignant neoplasm of pancreas, unspecified (principal)
CPT/HCPCS: 48102; 77012; 85027; 85610; 88173; 88305; 99152; 99153; J2250; J3010

== ENCOUNTER 2024-06-26 14:07 | Inpatient (IN) | payer MEDICARE, MEDICAID ==
[~2024-06-26] VITALS: Ht 165.1 cm; Wt 90.5 kg
[2024-06-26 14:52] LABS: BASO % 0.3 % (0.0-1.0); EOS % 0.3 % (0.0-3.0); HEMATOCRIT 43.2 % (36.0-47.0); HEMOGLOBIN 14.6 g/dl (12.0-15.5); LYMPH # 0.2 10^3/uL (1.5-5.0); LYMPH % 5.8 % (24.0-44.0); MEAN CORPUSCULAR HEMOGLOBIN 30.8 pg (27.0-33.0); MEAN CORPUSCULAR HGB CONC 33.8 g/dl (32.0-36.5); MEAN CORPUSCULAR VOLUME 91.1 fl (80.0-96.0); MONO % 0.5 % (2.0-8.0); NEUTROPHILS # 3.5 10^3/uL (1.5-8.5); NEUTROPHILS % 91.8 % (36.0-66.0); PLATELET COUNT, AUTOMATED 137 10^3/uL (150-450); RED BLOOD COUNT 4.74 10^6/uL (4.00-5.40); WHITE BLOOD COUNT 3.8 10^3/uL (4.0-10.0)
[2024-06-26 15:14] LABS: VENOUS BASE EXCESS -4.1 (-2.0-2.0); VENOUS HCO3 18.2 MMOL/L (23.0-27.0); VENOUS O2 SATURATION 78.5 % (60.0-80.0); VENOUS PARTIAL PRESSURE CO2 26.7 mmHg (38.0-50.0); VENOUS PARTIAL PRESSURE O2 37.3 mmHg (30.0-50.0); VENOUS PH 7.451 UNITS (7.330-7.430); VENOUS STANDARD HCO3 20.7 MMOL/L
[2024-06-26 15:21] LABS: LIPASE 29 U/L (12-53)
[2024-06-26] MEDS: NS 2,450 ML in IV 1 EA IV ONE (15:21)
[2024-06-26 15:22] LABS: INR 1.19; PROTHROMBIN TIME 14.7 SECONDS (12.5-14.5)
[2024-06-26] MEDS: KETOROLAC 30 MG/ML 1ML VIAL IV ONE (15:23)
[2024-06-26 15:27] LABS: ALBUMIN 3.2 G/DL (3.2-5.2); ALKALINE PHOSPHATASE 206 U/L (46-116); ALT/SGPT 375 U/L (7.0-40); AST/SGOT 439 U/L (<34); BILIRUBIN,DIRECT 4.1 MG/DL (<0.4); BILIRUBIN,TOTAL 5.5 MG/DL (0.3-1.2); BLOOD UREA NITROGEN 16 MG/DL (9-23); CALCIUM LEVEL 8.8 MG/DL (8.3-10.6); CARBON DIOXIDE LEVEL 19 MMOL/L (20-31); CHLORIDE LEVEL 96 MMOL/L (98-107); CREATININE FOR GFR 0.83 MG/DL (0.55-1.30); GLOMERULAR FILTRATION RATE > 60.0 (>39); GLUCOSE, FASTING 186 MG/DL (74-106); POTASSIUM SERUM 3.7 MMOL/L (3.5-5.1); SODIUM LEVEL 129 MMOL/L (136-145); TOTAL PROTEIN 6.5 G/DL (5.7-8.2)
[2024-06-26] MEDS ORDERED: ISOVUE-370 76% 100ML VIAL As Ordered ONE (15:38)
[2024-06-26] MEDS: PIPERACILLIN/TAZOBACTAM SOD 3.375 GM in D5W MINI-BAG PLUS 50 ML IV ONE (16:37)
[2024-06-26] MEDS: fentaNYL 100 MCG/2 ML INJECTION IV ONE ×2 (18:42→22:09)
[2024-06-26] MEDS: NOREPINEPHRINE 4MG IN D5 250ML 4 MG in IV 1 EA IV SCH (20:24)
[2024-06-27] VITALS (7 sets, daily range): BP systolic 87–131; BP diastolic 49–72; TEMP 97.2; O2SAT 94–96
[2024-06-27] MEDS: NS 1,000 ML IV SCH ×2 (02:00→11:35)
[2024-06-27 02:50] LABS: BASO % 0.1 % (0.0-1.0); HEMATOCRIT 35.9 % (36.0-47.0); LYMPH # 0.9 10^3/uL (1.5-5.0); LYMPH % 5.8 % (24.0-44.0); MEAN CORPUSCULAR HEMOGLOBIN 31.9 pg (27.0-33.0); MEAN CORPUSCULAR VOLUME 93.7 fl (80.0-96.0); MONO # 1.1 10^3/uL (0.0-0.8); NEUTROPHILS % 86.4 % (36.0-66.0); PLATELET COUNT, AUTOMATED 131 10^3/uL (150-450); RED BLOOD COUNT 3.83 10^6/uL (4.00-5.40)
[2024-06-27 02:53] LABS: HEMOGLOBIN 12.2 g/dl (12.0-15.5)
[2024-06-27 03:03] LABS: LIPASE 20 U/L (12-53)
[2024-06-27 03:07] LABS: ALBUMIN 2.3 G/DL (3.2-5.2); ALKALINE PHOSPHATASE 152 U/L (46-116); ALT/SGPT 270 U/L (7.0-40); AST/SGOT 255 U/L (<34); BILIRUBIN,DIRECT 3.7 MG/DL (<0.4); BILIRUBIN,TOTAL 4.5 MG/DL (0.3-1.2); BLOOD UREA NITROGEN 15 MG/DL (9-23); CALCIUM LEVEL 7.2 MG/DL (8.3-10.6); CARBON DIOXIDE LEVEL 22 MMOL/L (20-31); CHLORIDE LEVEL 108 MMOL/L (98-107); CREATININE FOR GFR 0.84 MG/DL (0.55-1.30); GLOMERULAR FILTRATION RATE > 60.0 (>39); GLUCOSE, FASTING 193 MG/DL (74-106); POTASSIUM SERUM 3.8 MMOL/L (3.5-5.1); SODIUM LEVEL 136 MMOL/L (136-145); TOTAL PROTEIN 4.9 G/DL (5.7-8.2)
[2024-06-27] MEDS: PIPERACILLIN/TAZOBACTAM SOD 3.375 GM in D5W MINI-BAG PLUS 50 ML IV SCH (03:13)
[2024-06-27] MEDS ORDERED: METF-877 PO (06:41)
[2024-06-27] MEDS ORDERED: HOME MED LIST COMPLETE! XX SCH (06:45)
[2024-06-27] MEDS: NS 1,000 ML IV ONE (08:39)
[2024-06-27 11:09] LABS: BASO % 0.3 % (0.0-1.0); EOS # 0.1 10^3/uL (0.0-0.5); EOS % 0.8 % (0.0-3.0); HEMATOCRIT 38.8 % (36.0-47.0); LYMPH # 0.8 10^3/uL (1.5-5.0); LYMPH % 11.7 % (24.0-44.0); MEAN CORPUSCULAR HEMOGLOBIN 31.4 pg (27.0-33.0); MEAN CORPUSCULAR HGB CONC 33.5 g/dl (32.0-36.5); MEAN CORPUSCULAR VOLUME 93.7 fl (80.0-96.0); MONO # 0.2 10^3/uL (0.0-0.8); MONO % 2.7 % (2.0-8.0); NEUTROPHILS % 84.2 % (36.0-66.0); RED BLOOD COUNT 4.14 10^6/uL (4.00-5.40); WHITE BLOOD COUNT 7.1 10^3/uL (4.0-10.0)
[2024-06-27 11:32] LABS: ALBUMIN 2.5 G/DL (3.2-5.2); ALKALINE PHOSPHATASE 153 U/L (46-116); ALT/SGPT 288 U/L (7.0-40); AST/SGOT 329 U/L (<34); BILIRUBIN,DIRECT 3.6 MG/DL (<0.4); BILIRUBIN,TOTAL 4.9 MG/DL (0.3-1.2); BLOOD UREA NITROGEN 16 MG/DL (9-23); CALCIUM LEVEL 7.1 MG/DL (8.3-10.6); CARBON DIOXIDE LEVEL 23 MMOL/L (20-31); CHLORIDE LEVEL 108 MMOL/L (98-107); CREATININE FOR GFR 0.73 MG/DL (0.55-1.30); GLOMERULAR FILTRATION RATE > 60.0 (>39); GLUCOSE, FASTING 126 MG/DL (74-106); LIPASE 32 U/L (12-53); POTASSIUM SERUM 4.9 MMOL/L (3.5-5.1); SODIUM LEVEL 137 MMOL/L (136-145); TOTAL PROTEIN 5.6 G/DL (5.7-8.2)
[2024-06-27] MEDS ORDERED: GLUCOSE 4 GM CHEW PO PRN (11:45)
[2024-06-27] MEDS ORDERED: DEXTROSE 50% 50ML SYRINGE IV PRN (11:45)
[2024-06-27] MEDS ORDERED: GLUCAGON INJ 1MG VIAL SC PRN (11:45)
[2024-06-27 11:59] LABS: PLATELET COUNT, AUTOMATED 120 10^3/uL (150-450)
[2024-06-27] MEDS ORDERED: PIPERACILLIN/TAZOBACTAM SOD 4.5 GM in D5W MINI-BAG PLUS 50 ML IV SCH ×2 (12:00→15:00)
[2024-06-27] MEDS ORDERED: INSULIN LISPRO (NovoLOG) PER UNIT SC SCH (12:00)
[2024-06-27] MEDS: busPIRone 10 MG TAB PO SCH (14:00)
[2024-06-27] MEDS: oxyCODONE 5MG TAB PO PRN (14:00)
[2024-06-27] MEDS: ESCITALOPRAM OXALATE 10 MG TAB (LEXAPRO) PO SCH (14:01)
[2024-06-27] MEDS: ACETAMINOPHEN TAB 650MG DOSE (2X325MG) PO PRN (14:03)
[2024-06-27] MEDS: PIPERACILLIN/TAZOBACTAM SOD 4.5 GM in D5W MINI-BAG PLUS 50 ML IV SCH (14:06)
[2024-06-27] MEDS: HYDROCORTISONE 100MG/2ML VIAL IV ONE (16:24)
[2024-06-27] MEDS ORDERED: NOREPINEPHRINE 4MG IN D5 250ML 4 MG in IV 1 EA IV SCH (19:20)
[2024-06-27] MEDS: INSULIN LISPRO (NovoLOG) PER UNIT SC SCH (20:00)
[2024-06-27] MEDS ORDERED: SYMBICORT 80/4.5MCG INHALER 6GM INH SCH (20:00)
[2024-06-27] MEDS: ADVAIR HFA 230/21MCG INHALER INH SCH (20:40)
[2024-06-27] MEDS: IPRATROPIUM 0.5MG/ALBUTEROL 2.5MG INH SOL UD 3ML (DUONEB) NEB SCH (20:40)
[2024-06-27] MEDS: TIOTROPIUM INHALER/CAPSULE (SPIRIVA) INH SCH (20:47)
[2024-06-28] VITALS (14 sets, daily range): BP systolic 103–159; BP diastolic 57–84; TEMP 97.3–98.8; O2SAT 3–97
[2024-06-28 04:21] LABS: HEMATOCRIT 32.9 % (36.0-47.0); HEMOGLOBIN 11.3 g/dl (12.0-15.5); MEAN CORPUSCULAR HEMOGLOBIN 31.7 pg (27.0-33.0); MEAN CORPUSCULAR HGB CONC 34.3 g/dl (32.0-36.5); MEAN CORPUSCULAR VOLUME 92.4 fl (80.0-96.0); PLATELET COUNT, AUTOMATED 117 10^3/uL (150-450); RED BLOOD COUNT 3.56 10^6/uL (4.00-5.40); WHITE BLOOD COUNT 7.9 10^3/uL (4.0-10.0)
[2024-06-28 04:55] LABS: ALKALINE PHOSPHATASE 179 U/L (46-116); ALT/SGPT 256 U/L (7.0-40); AST/SGOT 254 U/L (<34); BLOOD UREA NITROGEN 13 MG/DL (9-23); CALCIUM LEVEL 6.4 MG/DL (8.3-10.6); CARBON DIOXIDE LEVEL 21 MMOL/L (20-31); CHLORIDE LEVEL 108 MMOL/L (98-107); CREATININE FOR GFR 0.67 MG/DL (0.55-1.30); GLOMERULAR FILTRATION RATE > 60.0 (>39); GLUCOSE, FASTING 189 MG/DL (74-106); POTASSIUM SERUM 2.8 MMOL/L (3.5-5.1); SODIUM LEVEL 138 MMOL/L (136-145); TOTAL PROTEIN 4.6 G/DL (5.7-8.2)
[2024-06-28] MEDS: KCL IV STA (05:20)
[2024-06-28] MEDS: SWI IV STA (05:20)
[2024-06-28] MEDS: SWI IV SCH (06:21)
[2024-06-28] MEDS: KCL IV SCH (06:21)
[2024-06-28] MEDS: MORPHINE 2 MG/ML 1ML VIAL IV PRN (09:00)
[2024-06-28] MEDS: KCL 20MEQ IN 100ML SWI (KRUN) 20 MEQ in IV 1 EA IV SCH (09:01)
[2024-06-28] MEDS ORDERED: NS 1,000 ML IV SCH (12:40)
[2024-06-28 13:38] LABS: ALBUMIN 2.1 G/DL (3.2-5.2); BLOOD UREA NITROGEN 12 MG/DL (9-23); CALCIUM LEVEL 6.5 MG/DL (8.3-10.6); CARBON DIOXIDE LEVEL 21 MMOL/L (20-31); CHLORIDE LEVEL 110 MMOL/L (98-107); CREATININE FOR GFR 0.63 MG/DL (0.55-1.30); GLOMERULAR FILTRATION RATE > 60.0 (>39); GLUCOSE, FASTING 124 MG/DL (74-106); PHOSPHORUS LEVEL 0.9 MG/DL (2.4-5.1); POTASSIUM SERUM 3.5 MMOL/L (3.5-5.1); SODIUM LEVEL 138 MMOL/L (136-145)
[2024-06-28] MEDS ORDERED: HYDROMORPHONE HCL 0.5 MG/ 0.5 ML SYRINGE IV PRN (16:25)
[2024-06-28] MEDS: NS 1,000 ML IV SCH (16:47)
[2024-06-28] MEDS: ACETAMINOPHEN TAB 650MG DOSE (2X325MG) PO ONE (17:00)
[2024-06-28] MEDS: POTASSIUM PHOSPHATE INJ 30 MMOL in D5W 500 ML IV ONE (18:48)
[2024-06-29] VITALS (8 sets, daily range): BP systolic 106–142; BP diastolic 56–84; TEMP 97.5–98.2; O2SAT 92–99
[2024-06-29 05:23] LABS: BASO % 0.2 % (0.0-1.0); HEMATOCRIT 32.6 % (36.0-47.0); HEMOGLOBIN 11.1 g/dl (12.0-15.5); LYMPH # 0.7 10^3/uL (1.5-5.0); LYMPH % 6.9 % (24.0-44.0); MEAN CORPUSCULAR HEMOGLOBIN 31.3 pg (27.0-33.0); MEAN CORPUSCULAR VOLUME 91.8 fl (80.0-96.0); MONO % 9.8 % (2.0-8.0); NEUTROPHILS # 7.9 10^3/uL (1.5-8.5); NEUTROPHILS % 81.4 % (36.0-66.0); PLATELET COUNT, AUTOMATED 133 10^3/uL (150-450); RED BLOOD COUNT 3.55 10^6/uL (4.00-5.40); WHITE BLOOD COUNT 9.7 10^3/uL (4.0-10.0)
[2024-06-29 05:36] LABS: ALBUMIN 2.1 G/DL (3.2-5.2); ALKALINE PHOSPHATASE 187 U/L (46-116); ALT/SGPT 218 U/L (7.0-40); AST/SGOT 153 U/L (<34); BILIRUBIN,TOTAL 3.2 MG/DL (0.3-1.2); BLOOD UREA NITROGEN 9 MG/DL (9-23); CALCIUM LEVEL 6.4 MG/DL (8.3-10.6); CARBON DIOXIDE LEVEL 23 MMOL/L (20-31); CHLORIDE LEVEL 109 MMOL/L (98-107); CREATININE FOR GFR 0.62 MG/DL (0.55-1.30); GLOMERULAR FILTRATION RATE > 60.0 (>39); GLUCOSE, FASTING 144 MG/DL (74-106); POTASSIUM SERUM 3.8 MMOL/L (3.5-5.1); SODIUM LEVEL 137 MMOL/L (136-145); TOTAL PROTEIN 4.7 G/DL (5.7-8.2)
[2024-06-29 08:33] LABS: PHOSPHORUS LEVEL 1.2 MG/DL (2.4-5.1)
[2024-06-29] MEDS ORDERED: CALCIUM GLUCONATE 1,000 MG in D5W MINI-BAG PLUS 100 ML IV SCH (09:00)
[2024-06-29] MEDS: CEFEPIME HCL 2 GM in D5W MINI-BAG PLUS 50 ML IV SCH (10:48)
[2024-06-29] MEDS: CALCIUM GLUCONATE 1,000 MG in D5W MINI-BAG PLUS 100 ML IV ONE (10:49)
[2024-06-29] MEDS ORDERED: CEFEPIME HCL 2 GM in D5W MINI-BAG PLUS 50 ML IV SCH (11:00)
[2024-06-29] MEDS: SODIUM PHOSPHATE INJ 20 MMOL in D5W 250 ML IV ONE (12:02)
[2024-06-29] MEDS: metroNIDAZOLE (FLAGYL) 500MG TABLET PO SCH (14:22)
[2024-06-29] MEDS: INSULIN LISPRO (NovoLOG) PER UNIT SC SCH ×2 (17:30→20:40)
[2024-06-30 04:36] VITALS: BP 130/73; TEMP 97.3; O2SAT 94
[2024-06-30 12:00] VITALS: BP 132/74; TEMP 98.1; O2SAT 97
[2024-06-30 15:05] LABS: HEMATOCRIT 33.4 % (36.0-47.0); HEMOGLOBIN 11.2 g/dl (12.0-15.5); MEAN CORPUSCULAR HEMOGLOBIN 31.1 pg (27.0-33.0); MEAN CORPUSCULAR HGB CONC 33.5 g/dl (32.0-36.5); MEAN CORPUSCULAR VOLUME 92.8 fl (80.0-96.0); PLATELET COUNT, AUTOMATED 170 10^3/uL (150-450); WHITE BLOOD COUNT 9.1 10^3/uL (4.0-10.0)
[2024-06-30 15:26] LABS: ALBUMIN 2.1 G/DL (3.2-5.2); ALKALINE PHOSPHATASE 157 U/L (46-116); ALT/SGPT 144 U/L (7.0-40); AST/SGOT 52 U/L (<34); BILIRUBIN,TOTAL 2.9 MG/DL (0.3-1.2); BLOOD UREA NITROGEN 6 MG/DL (9-23); CALCIUM LEVEL 7.1 MG/DL (8.3-10.6); CARBON DIOXIDE LEVEL 22 MMOL/L (20-31); CHLORIDE LEVEL 106 MMOL/L (98-107); CREATININE FOR GFR 0.57 MG/DL (0.55-1.30); GLOMERULAR FILTRATION RATE > 60.0 (>39); GLUCOSE, FASTING 125 MG/DL (74-106); POTASSIUM SERUM 3.1 MMOL/L (3.5-5.1); SODIUM LEVEL 137 MMOL/L (136-145); TOTAL PROTEIN 5.1 G/DL (5.7-8.2)
[2024-06-30 15:36] LABS: ATYPICAL LYMPH 3 % (0-5); EOSINOPHILS 1 % (0-3); LYMPHOCYTES 22 % (16-44); MONOCYTES 6 % (0-5); NEUTROPHILS 68 % (28-66); PLATELET ESTIMATE NORMAL (NORMAL)
[2024-06-30] MEDS ORDERED: ALBUTEROL 90 MCG/ACT 8GM HFA INHALER INH PRN (18:30)
[2024-06-30 18:42] LABS: MAGNESIUM LEVEL 1.4 MG/DL (1.8-2.4); PHOSPHORUS LEVEL 1.4 MG/DL (2.4-5.1)
[2024-06-30] MEDS ORDERED: CEFEPIME HCL 2 GM in D5W MINI-BAG PLUS 50 ML IV SCH (19:00)
[2024-06-30 20:10] VITALS: BP 130/71; TEMP 98.1; O2SAT 90
[2024-06-30] MEDS: LINEZOLID 600MG TABLET (ZYVOX) PO SCH (20:53)
[2024-06-30] MEDS: POTASSIUM CHLORIDE 10MEQ SR TABLET PO ONE (20:54)
[2024-06-30] MEDS: CEFEPIME HCL 2 GM in D5W MINI-BAG PLUS 50 ML IV SCH (22:10)
[2024-06-30] MEDS: ONDANSETRON 4MG 2ML VIAL IV ONE (22:45)
[2024-06-30] MEDS: POTASSIUM PHOSPHATE INJ 20 MMOL in D5W 250 ML IV ONE (22:46)
[2024-07-01 04:31] VITALS: BP 127/75; TEMP 99.1; O2SAT 91
[2024-07-01] MEDS ORDERED: LevoFLOXacin 750 MG TABLET PO SCH (06:00)
[2024-07-01] MEDS: MAG SULF 1GM/100ML (MAG RUN) 1 GM in IV 1 EA IV SCH (08:06)
[2024-07-01 08:27] LABS: BASO # 0.1 10^3/uL (0.0-0.2); EOS # 0.1 10^3/uL (0.0-0.5); HEMATOCRIT 33.7 % (36.0-47.0); HEMOGLOBIN 11.7 g/dl (12.0-15.5); LYMPH # 1.3 10^3/uL (1.5-5.0); LYMPH % 14.1 % (24.0-44.0); MEAN CORPUSCULAR HEMOGLOBIN 31.5 pg (27.0-33.0); MEAN CORPUSCULAR HGB CONC 34.7 g/dl (32.0-36.5); MEAN CORPUSCULAR VOLUME 90.6 fl (80.0-96.0); MONO # 1.1 10^3/uL (0.0-0.8); MONO % 12.5 % (2.0-8.0); NEUTROPHILS # 5.7 10^3/uL (1.5-8.5); NEUTROPHILS % 62.9 % (36.0-66.0); PLATELET COUNT, AUTOMATED 218 10^3/uL (150-450); RED BLOOD COUNT 3.72 10^6/uL (4.00-5.40); WHITE BLOOD COUNT 9.1 10^3/uL (4.0-10.0)
[2024-07-01 08:52] LABS: ALBUMIN 2.2 G/DL (3.2-5.2); ALKALINE PHOSPHATASE 149 U/L (46-116); ALT/SGPT 122 U/L (7.0-40); AST/SGOT 38 U/L (<34); BILIRUBIN,TOTAL 2.5 MG/DL (0.3-1.2); BLOOD UREA NITROGEN 5 MG/DL (9-23); CALCIUM LEVEL 7.4 MG/DL (8.3-10.6); CARBON DIOXIDE LEVEL 22 MMOL/L (20-31); CHLORIDE LEVEL 106 MMOL/L (98-107); CREATININE FOR GFR 0.58 MG/DL (0.55-1.30); GLOMERULAR FILTRATION RATE > 60.0 (>39); GLUCOSE, FASTING 119 MG/DL (74-106); POTASSIUM SERUM 3.1 MMOL/L (3.5-5.1); SODIUM LEVEL 136 MMOL/L (136-145); TOTAL PROTEIN 5.2 G/DL (5.7-8.2)
[2024-07-01] MEDS: SIMVASTATIN 20 MG TAB PO SCH (09:11)
[2024-07-01] MEDS: POTASSIUM CHLORIDE 10MEQ SR TABLET PO SCH (10:18)
[2024-07-01] MEDS: CALCIUM CARBONATE 500 MG CHEW U/D PO PRN (10:18)
[2024-07-01 12:00] VITALS: BP 128/76; TEMP 97.7; O2SAT 95
[2024-07-01] MEDS: POTASSIUM PHOSPHATE INJ 30 MMOL in D5W 500 ML IV ONE (15:57)
[2024-07-01 20:13] VITALS: BP 143/83; TEMP 97.5; O2SAT 95
[2024-07-02 03:54] VITALS: BP 123/80; TEMP 98.8; O2SAT 91
[2024-07-02] MEDS: LevoFLOXacin 750 MG TABLET PO SCH (05:10)
[2024-07-02 07:00] LABS: ALBUMIN 2.1 G/DL (3.2-5.2); ALKALINE PHOSPHATASE 134 U/L (46-116); ALT/SGPT 92 U/L (7.0-40); AST/SGOT 31 U/L (<34); BLOOD UREA NITROGEN < 5 MG/DL (9-23); CALCIUM LEVEL 8.1 MG/DL (8.3-10.6); CARBON DIOXIDE LEVEL 23 MMOL/L (20-31); CHLORIDE LEVEL 106 MMOL/L (98-107); CREATININE FOR GFR 0.52 MG/DL (0.55-1.30); GLOMERULAR FILTRATION RATE > 60.0 (>39); GLUCOSE, FASTING 119 MG/DL (74-106); POTASSIUM SERUM 4.2 MMOL/L (3.5-5.1); SODIUM LEVEL 134 MMOL/L (136-145)
[2024-07-02] MEDS: FAMOTIDINE 20 MG TAB PO ONE (08:44)
[2024-07-02 10:59] LABS: PHOSPHORUS LEVEL 2.7 MG/DL (2.4-5.1)
[2024-07-02] MEDS: PERCOCET 5MG/325MG TAB PO PRN (11:41)
[2024-07-02 12:00] VITALS: BP 139/72; TEMP 98.1; O2SAT 96
[2024-07-02] MEDS ORDERED: LINE1TAB6 PO (12:24)
[2024-07-02] MEDS ORDERED: METR-265 PO (12:24)
[2024-07-02] MEDS ORDERED: MAGN400T2 PO (12:24)
[2024-07-02] MEDS ORDERED: LEVO1TAB40 PO (12:24)
[2024-07-02] MEDS ORDERED: PROBCAP14 PO (12:26)
[2024-07-02 12:41] VITALS: O2SAT 95
== END 2024-07-02 15:10 | disposition home health service (06) | DRG 871 ==
LOC: EDBD 14:07 → M ED 14:07 → M ED INP 06-27 11:33 → M ICU 06-27 19:56 → M MS5PR 06-29 18:15
PROVIDERS: ADMIT Internal Medicine; ATTEND Student in an Organized Health Care Education/Training Program
PROC: 02HV33Z Insertion of Infusion Device into Superior Vena Cava, Percutaneous Approach (ICD-10-PCS; 2024-06-27)
PROC: 0F9630Z Drainage of Left Hepatic Duct with Drainage Device, Percutaneous Approach (ICD-10-PCS; principal; 2024-06-28 15:00)
DX: A41.59 Other Gram-negative sepsis (principal); R65.21 Severe sepsis with septic shock; K83.1 Obstruction of bile duct; C25.0 Malignant neoplasm of head of pancreas; K83.09 Other cholangitis; E87.20 Acidosis, unspecified; E11.9 Type 2 diabetes mellitus without complications; E78.5 Hyperlipidemia, unspecified; E83.39 Other disorders of phosphorus metabolism; I10 Essential (primary) hypertension; D69.6 Thrombocytopenia, unspecified; F32.A Depression, unspecified; J44.9 Chronic obstructive pulmonary disease, unspecified; E87.6 Hypokalemia; E83.42 Hypomagnesemia; B95.2 Enterococcus as the cause of diseases classified elsewhere; Z90.13 Acquired absence of bilateral breasts and nipples; Z85.3 Personal history of malignant neoplasm of breast; Z92.21 Personal history of antineoplastic chemotherapy; Z79.899 Other long term (current) drug therapy

== ENCOUNTER → 2024-07-12 | Outpatient (CLI) | payer MEDICARE, MEDICAID ==
[~2024-07-12] MED LIST changes: +CALTAB PO; +GNPTAB94 PO; +LEVO1TAB40 PO; +LINE1TAB6 PO; +METF-877 PO; +METR-265 PO; +ONDA-282 PO; +PANT40TA29 PO; +PROBCAP14 PO; +SPIR-10 PO
[2024-07-12] MEDS: ONDANSETRON 4MG ORAL DISINTEGRATING TAB PO ONE (10:14)
[2024-07-12 10:38] LABS: BASO # 0.1 10^3/uL (0.0-0.2); BASO % 1.3 % (0.0-1.0); EOS % 0.3 % (0.0-3.0); HEMOGLOBIN 14.1 g/dl (12.0-15.5); LYMPH # 1.7 10^3/uL (1.5-5.0); LYMPH % 19.4 % (24.0-44.0); MEAN CORPUSCULAR VOLUME 96.7 fl (80.0-96.0); MONO # 1.6 10^3/uL (0.0-0.8); MONO % 17.3 % (2.0-8.0); NEUTROPHILS # 5.4 10^3/uL (1.5-8.5); NEUTROPHILS % 60.6 % (36.0-66.0); PLATELET COUNT, AUTOMATED 180 10^3/uL (150-450); RED BLOOD COUNT 4.55 10^6/uL (4.00-5.40)
[2024-07-12 11:26] LABS: ALBUMIN 3.4 G/DL (3.2-5.2); ALKALINE PHOSPHATASE 86 U/L (46-116); ALT/SGPT 27 U/L (7.0-40); AST/SGOT 37 U/L (<34); BILIRUBIN,TOTAL 1.3 MG/DL (0.3-1.2); BLOOD UREA NITROGEN 12 MG/DL (9-23); CALCIUM LEVEL 9.1 MG/DL (8.3-10.6); CARBON DIOXIDE LEVEL 19 MMOL/L (20-31); CHLORIDE LEVEL 102 MMOL/L (98-107); CREATININE FOR GFR 0.69 MG/DL (0.55-1.30); GLOMERULAR FILTRATION RATE > 60.0 (>39); GLUCOSE, FASTING 201 MG/DL (74-106); POTASSIUM SERUM 3.6 MMOL/L (3.5-5.1); SODIUM LEVEL 135 MMOL/L (136-145); TOTAL PROTEIN 6.6 G/DL (5.7-8.2)
[2024-07-12 12:52] LABS: CA19-9 TUMOR MARKER,CARBOHYDRA 19731.2 U/ML (<35.0)
== END ==
LOC: M ONCR 09:49
PROVIDERS: ATTEND General Practice
DX: C25.0 Malignant neoplasm of head of pancreas (principal); C50.111 Malignant neoplasm of central portion of right female breast; C50.112 Malignant neoplasm of central portion of left female breast; R11.0 Nausea; Z90.13 Acquired absence of bilateral breasts and nipples; Z92.21 Personal history of antineoplastic chemotherapy; Z92.3 Personal history of irradiation; Z92.29 Personal history of other drug therapy; Z90.710 Acquired absence of both cervix and uterus; Z90.722 Acquired absence of ovaries, bilateral; Z90.79 Acquired absence of other genital organ(s); Z79.84 Long term (current) use of oral hypoglycemic drugs; Z79.51 Long term (current) use of inhaled steroids; Z79.899 Other long term (current) drug therapy
CPT/HCPCS: 36415; 80053; 82378; 85025; 86301; G0463

== ENCOUNTER 2024-07-18 13:31 | Inpatient (IN) | payer MEDICARE, MEDICAID ==
[~2024-07-18] VITALS: Ht 162.6 cm; Wt 71.9 kg
[~2024-07-18 13:31] MED LIST changes: -CALTAB PO; -GNPTAB94 PO; -PANT40TA29 PO; -SPIR-10 PO
[2024-07-18 15:12] LABS: BASO % 0.5 % (0.0-1.0); EOS % 0.3 % (0.0-3.0); HEMATOCRIT 40.5 % (36.0-47.0); HEMOGLOBIN 13.7 g/dl (12.0-15.5); LYMPH # 1.3 10^3/uL (1.5-5.0); LYMPH % 22.6 % (24.0-44.0); MEAN CORPUSCULAR HEMOGLOBIN 31.3 pg (27.0-33.0); MEAN CORPUSCULAR HGB CONC 33.8 g/dl (32.0-36.5); MEAN CORPUSCULAR VOLUME 92.5 fl (80.0-96.0); MONO # 0.8 10^3/uL (0.0-0.8); MONO % 14.4 % (2.0-8.0); NEUTROPHILS # 3.6 10^3/uL (1.5-8.5); NEUTROPHILS % 61.5 % (36.0-66.0); PLATELET COUNT, AUTOMATED 177 10^3/uL (150-450); RED BLOOD COUNT 4.38 10^6/uL (4.00-5.40); WHITE BLOOD COUNT 5.9 10^3/uL (4.0-10.0)
[2024-07-18 15:26] LABS: INR 1.17; PARTIAL THROMBOPLASTIN TIME 23.5 SECONDS (24.8-34.2); PROTHROMBIN TIME 14.6 SECONDS (12.5-14.5)
[2024-07-18 15:44] LABS: ALBUMIN 3.4 G/DL (3.2-5.2); ALKALINE PHOSPHATASE 72 U/L (46-116); ALT/SGPT 25 U/L (7.0-40); AST/SGOT 43 U/L (<34); BILIRUBIN,DIRECT 0.7 MG/DL (<0.4); BILIRUBIN,TOTAL 1.2 MG/DL (0.3-1.2); BLOOD UREA NITROGEN 18 MG/DL (9-23); CALCIUM LEVEL 9.4 MG/DL (8.3-10.6); CARBON DIOXIDE LEVEL 24 MMOL/L (20-31); CHLORIDE LEVEL 99 MMOL/L (98-107); CK-MB VALUE MASS < 1.0 NG/ML (<3.6); CREATININE FOR GFR 0.65 MG/DL (0.55-1.30); GLOMERULAR FILTRATION RATE > 60.0 (>39); GLUCOSE, FASTING 190 MG/DL (74-106); POTASSIUM SERUM 3.5 MMOL/L (3.5-5.1); SODIUM LEVEL 134 MMOL/L (136-145); TOTAL PROTEIN 6.6 G/DL (5.7-8.2)
[2024-07-18 15:45] LABS: FREE T4 2.08 NG/DL (0.89-1.76)
[2024-07-18 15:46] LABS: THYROID STIMULATING HORMONE 1.363 uIU/ML (0.55-4.78)
[2024-07-18 15:49] LABS: CPK CREATINE PHOSPHOKINASE 30 U/L (34-145); MB/CK RELATIVE INDEX 3.33 (< OR =4)
[2024-07-18] MEDS: NS 1,000 ML IV ONE ×2 (15:54→23:40)
[2024-07-18 17:21] LABS: CK-MB VALUE MASS < 1.0 NG/ML (<3.6)
[2024-07-18 17:23] LABS: CPK CREATINE PHOSPHOKINASE 26 U/L (34-145); MB/CK RELATIVE INDEX 3.84 (< OR =4)
[2024-07-18] MEDS: PIPERACILLIN/TAZOBACTAM SOD 4.5 GM in D5W MINI-BAG PLUS 50 ML IV ONE (17:55)
[2024-07-18] MEDS ORDERED: ALBUTEROL SULFATE 2.5MG/0.5ML INH NEB SOLN NEB PRN (18:00)
[2024-07-18] MEDS: NS 1,000 ML IV SCH (18:00)
[2024-07-18] MEDS ORDERED: ISOVUE-370 76% 100ML VIAL As Ordered ONE (18:34)
[2024-07-18] MEDS ORDERED: MAGN400T2 PO (18:34)
[2024-07-18] MEDS ORDERED: PANT40TA29 PO (18:34)
[2024-07-18] MEDS ORDERED: SPIR-10 PO (18:34)
[2024-07-18] MEDS ORDERED: GNPTAB94 PO (18:34)
[2024-07-18] MEDS ORDERED: CALTAB PO (18:34)
[2024-07-18] MEDS ORDERED: HOME MED LIST COMPLETE! XX SCH (18:35)
[2024-07-18 20:33] LABS: INR 1.2; PROTHROMBIN TIME 14.8 SECONDS (12.5-14.5)
[2024-07-18] MEDS: busPIRone 10 MG TAB PO SCH (21:21)
[2024-07-18] MEDS: SIMVASTATIN 20 MG TAB PO SCH (21:21)
[2024-07-18] MEDS: PIPERACILLIN/TAZOBACTAM SOD 3.375 GM in D5W MINI-BAG PLUS 50 ML IV SCH (23:00)
[2024-07-18] MEDS: ACETAMINOPHEN 325 MG TAB PO PRN (23:03)
[2024-07-19] MEDS: NS 1,000 ML IV ONE (00:15)
[2024-07-19 05:30] VITALS: BP 133/83; TEMP 98.1; O2SAT 97
[2024-07-19 05:47] VITALS: BP_SYST 111; BP_SYST 132; BP_SYST 133; BP_DIAS 70; BP_DIAS 80; BP_DIAS 83
[2024-07-19 07:39] LABS: HEMATOCRIT 33.8 % (36.0-47.0); HEMOGLOBIN 11.4 g/dl (12.0-15.5); MEAN CORPUSCULAR HEMOGLOBIN 31.3 pg (27.0-33.0); MEAN CORPUSCULAR HGB CONC 33.7 g/dl (32.0-36.5); MEAN CORPUSCULAR VOLUME 92.9 fl (80.0-96.0); PLATELET COUNT, AUTOMATED 140 10^3/uL (150-450); RED BLOOD COUNT 3.64 10^6/uL (4.00-5.40); WHITE BLOOD COUNT 4.6 10^3/uL (4.0-10.0)
[2024-07-19 08:11] LABS: ALBUMIN 2.7 G/DL (3.2-5.2); ALKALINE PHOSPHATASE 57 U/L (46-116); ALT/SGPT 20 U/L (7.0-40); AST/SGOT 31 U/L (<34); BILIRUBIN,TOTAL 1.1 MG/DL (0.3-1.2); BLOOD UREA NITROGEN 8 MG/DL (9-23); CALCIUM LEVEL 7.7 MG/DL (8.3-10.6); CARBON DIOXIDE LEVEL 22 MMOL/L (20-31); CHLORIDE LEVEL 108 MMOL/L (98-107); CREATININE FOR GFR 0.52 MG/DL (0.55-1.30); GLOMERULAR FILTRATION RATE > 60.0 (>39); GLUCOSE, FASTING 168 MG/DL (74-106); POTASSIUM SERUM 2.6 MMOL/L (3.5-5.1); SODIUM LEVEL 138 MMOL/L (136-145); TOTAL PROTEIN 5.2 G/DL (5.7-8.2)
[2024-07-19] MEDS: MAGNESIUM OXIDE 400MG TAB (MAG-OX) PO SCH (08:54)
[2024-07-19] MEDS: PANTOPRAZOLE 40MG TAB (PROTONIX) PO SCH (08:55)
[2024-07-19] MEDS: KCL 10MEQ/100ML SWI (KRUN) 10 MEQ in IV 1 EA IV SCH (08:55)
[2024-07-19] MEDS: POTASSIUM CHLORIDE 10MEQ SR TABLET PO ONE ×2 (08:55→20:22)
[2024-07-19] MEDS: ENOXAPARIN 40MG/0.4ML SYRINGE (J1650 PER 10MG) SC SCH (08:55)
[2024-07-19] MEDS: ESCITALOPRAM OXALATE 10 MG TAB (LEXAPRO) PO SCH (08:55)
[2024-07-19 10:45] VITALS: BP_SYST 121; BP_SYST 122; BP_SYST 126; BP_DIAS 76; BP_DIAS 79; BP_DIAS 82
[2024-07-19] MEDS ORDERED: DEXTROSE 50% 50ML SYRINGE IV PRN (11:55)
[2024-07-19] MEDS ORDERED: GLUCAGON INJ 1MG VIAL SC PRN (11:55)
[2024-07-19] MEDS ORDERED: GLUCOSE 4 GM CHEW PO PRN (11:55)
[2024-07-19 12:00] VITALS: BP 120/78; TEMP 97.5; O2SAT 99
[2024-07-19] MEDS: INSULIN LISPRO (NovoLOG) PER UNIT SC SCH ×2 (12:02→20:25)
[2024-07-19 16:47] LABS: POTASSIUM SERUM 3.4 MMOL/L (3.5-5.1)
[2024-07-19 19:24] LABS: PROCALCITONIN 0.14 ng/ml
[2024-07-19 19:50] VITALS: BP 119/77; TEMP 97.2; O2SAT 95
[2024-07-19] MEDS: SYMBICORT 80/4.5MCG INHALER 6GM INH SCH (20:06)
[2024-07-20 03:28] VITALS: BP 125/80; TEMP 97.9; O2SAT 95
[2024-07-20 06:00] LABS: BASO # 0.1 10^3/uL (0.0-0.2); EOS # 0.4 10^3/uL (0.0-0.5); EOS % 8.3 % (0.0-3.0); HEMATOCRIT 32.5 % (36.0-47.0); HEMOGLOBIN 10.8 g/dl (12.0-15.5); LYMPH % 19.9 % (24.0-44.0); MEAN CORPUSCULAR HEMOGLOBIN 31.2 pg (27.0-33.0); MEAN CORPUSCULAR HGB CONC 33.2 g/dl (32.0-36.5); MEAN CORPUSCULAR VOLUME 93.9 fl (80.0-96.0); MONO # 0.7 10^3/uL (0.0-0.8); MONO % 15.3 % (2.0-8.0); NEUTROPHILS # 2.6 10^3/uL (1.5-8.5); NEUTROPHILS % 54.7 % (36.0-66.0); PLATELET COUNT, AUTOMATED 138 10^3/uL (150-450); RED BLOOD COUNT 3.46 10^6/uL (4.00-5.40); WHITE BLOOD COUNT 4.8 10^3/uL (4.0-10.0)
[2024-07-20 06:26] LABS: BLOOD UREA NITROGEN 5 MG/DL (9-23); CALCIUM LEVEL 7.8 MG/DL (8.3-10.6); CARBON DIOXIDE LEVEL 22 MMOL/L (20-31); CHLORIDE LEVEL 110 MMOL/L (98-107); CREATININE FOR GFR 0.54 MG/DL (0.55-1.30); GLOMERULAR FILTRATION RATE > 60.0 (>39); GLUCOSE, FASTING 153 MG/DL (74-106); SODIUM LEVEL 140 MMOL/L (136-145)
[2024-07-20] MEDS: KCL 10MEQ/100ML SWI (KRUN) 10 MEQ in IV 1 EA IV SCH (08:10)
[2024-07-20] MEDS: POTASSIUM CHLORIDE 10MEQ SR TABLET PO SCH (08:11)
[2024-07-20] MEDS: TIOTROPIUM INHALER/CAPSULE (SPIRIVA) INH SCH (08:23)
[2024-07-20 09:28] LABS: MAGNESIUM LEVEL 1.5 MG/DL (1.8-2.4)
[2024-07-20] MEDS ORDERED: MAG SULF 1GM/100ML (MAG RUN) 1 GM in IV 1 EA IV ONE (09:40)
[2024-07-20] MEDS: POTASSIUM CHLORIDE 10MEQ SR TABLET PO ONE ×2 (09:56→21:49)
[2024-07-20] MEDS: MAG SULF 1GM/100ML (MAG RUN) 1 GM in IV 1 EA IV SCH (09:56)
[2024-07-20 12:00] VITALS: BP 126/73; TEMP 98.2; O2SAT 95
[2024-07-20 21:00] VITALS: BP 122/71; TEMP 97.2; O2SAT 94
[2024-07-21 03:49] VITALS: BP 121/76; TEMP 99; O2SAT 93
[2024-07-21 06:08] LABS: BLOOD UREA NITROGEN < 5 MG/DL (9-23); CALCIUM LEVEL 7.9 MG/DL (8.3-10.6); CARBON DIOXIDE LEVEL 22 MMOL/L (20-31); CHLORIDE LEVEL 110 MMOL/L (98-107); CREATININE FOR GFR 0.47 MG/DL (0.55-1.30); GLOMERULAR FILTRATION RATE > 60.0 (>39); GLUCOSE, FASTING 141 MG/DL (74-106); MAGNESIUM LEVEL 1.9 MG/DL (1.8-2.4); POTASSIUM SERUM 3.7 MMOL/L (3.5-5.1); SODIUM LEVEL 138 MMOL/L (136-145)
[2024-07-21] MEDS ORDERED: POTA-298 PO (10:10)
[2024-07-21 11:40] VITALS: BP 123/75; TEMP 98.6; O2SAT 97
== END 2024-07-21 14:07 | disposition home health service (06) | DRG 312 ==
LOC: EDBD 13:31 → M ED 13:31 → M ED INP 17:53 → M MSPAV 07-19 05:22
PROVIDERS: ADMIT Internal Medicine; ATTEND Internal Medicine
DX: I95.1 Orthostatic hypotension (principal); C25.9 Malignant neoplasm of pancreas, unspecified; R65.10 Systemic inflammatory response syndrome (SIRS) of non-infectious origin without acute organ dysfunction; E87.20 Acidosis, unspecified; E11.9 Type 2 diabetes mellitus without complications; E78.5 Hyperlipidemia, unspecified; I10 Essential (primary) hypertension; J44.9 Chronic obstructive pulmonary disease, unspecified; F32.A Depression, unspecified; Z95.3 Presence of xenogenic heart valve; Z90.13 Acquired absence of bilateral breasts and nipples; Z92.21 Personal history of antineoplastic chemotherapy; Z90.79 Acquired absence of other genital organ(s); K21.9 Gastro-esophageal reflux disease without esophagitis; Z79.84 Long term (current) use of oral hypoglycemic drugs; Z79.899 Other long term (current) drug therapy

== ENCOUNTER 2024-07-29 14:04 | Outpatient (RCR) | payer MEDICARE, MEDICAID ==
[~2024-07-29 14:04] MED LIST changes: +CALTAB PO; +GNPTAB94 PO; +PANT40TA29 PO; +POTA-298 PO; +SLF3ML IV.PROC; +SPIR-10 PO
== END 2024-08-11 ==
LOC: M ONCR 14:04
PROVIDERS: ATTEND General Practice
DX: Z51.0 Encounter for antineoplastic radiation therapy (principal); C25.0 Malignant neoplasm of head of pancreas

== ENCOUNTER 2024-07-30 18:49 | Emergency (ER) | payer MEDICARE, MEDICAID ==
[~2024-07-30] VITALS: Ht 162.6 cm; Wt 74.9 kg
[2024-07-30 19:07] VITALS: TEMP 99.6
[2024-07-30 20:11] LABS: BASO % 0.2 % (0.0-1.0); HEMATOCRIT 43.7 % (36.0-47.0); HEMOGLOBIN 14.2 g/dl (12.0-15.5); LYMPH # 0.9 10^3/uL (1.5-5.0); LYMPH % 5.3 % (24.0-44.0); MEAN CORPUSCULAR HEMOGLOBIN 30.8 pg (27.0-33.0); MEAN CORPUSCULAR HGB CONC 32.5 g/dl (32.0-36.5); MEAN CORPUSCULAR VOLUME 94.8 fl (80.0-96.0); MONO # 1.7 10^3/uL (0.0-0.8); MONO % 9.5 % (2.0-8.0); NEUTROPHILS # 14.8 10^3/uL (1.5-8.5); NEUTROPHILS % 84.5 % (36.0-66.0); PLATELET COUNT, AUTOMATED 274 10^3/uL (150-450); RED BLOOD COUNT 4.61 10^6/uL (4.00-5.40); WHITE BLOOD COUNT 17.5 10^3/uL (4.0-10.0)
[2024-07-30] MEDS: MORPHINE 4 MG/ML 1ML VIAL IV ONE (20:22)
[2024-07-30] MEDS: NS 1,000 ML IV ONE (20:23)
[2024-07-30] MEDS: ONDANSETRON 4MG 2ML VIAL IV ONE (20:23)
[2024-07-30 20:40] LABS: LIPASE 25 U/L (12-53)
[2024-07-30 20:42] LABS: ALBUMIN 2.9 G/DL (3.2-5.2); ALKALINE PHOSPHATASE 82 U/L (46-116); ALT/SGPT 26 U/L (7.0-40); AST/SGOT 45 U/L (<34); BILIRUBIN,DIRECT 0.8 MG/DL (<0.4); BILIRUBIN,TOTAL 1.4 MG/DL (0.3-1.2); BLOOD UREA NITROGEN 11 MG/DL (9-23); CALCIUM LEVEL 8.9 MG/DL (8.3-10.6); CARBON DIOXIDE LEVEL 21 MMOL/L (20-31); CHLORIDE LEVEL 104 MMOL/L (98-107); CREATININE FOR GFR 0.65 MG/DL (0.55-1.30); GLOMERULAR FILTRATION RATE > 60.0 (>39); GLUCOSE, FASTING 160 MG/DL (74-106); POTASSIUM SERUM 4.9 MMOL/L (3.5-5.1); SODIUM LEVEL 132 MMOL/L (136-145); TOTAL PROTEIN 6.3 G/DL (5.7-8.2)
[2024-07-30] MEDS ORDERED: ISOVUE-370 76% 100ML VIAL As Ordered ONE (20:54)
[2024-07-31] MEDS: PIPERACILLIN/TAZOBACTAM SOD 4.5 GM in DEXTROSE 5% (D5W) ADV/MINI-BAG 50 ML IV ONE (01:02)
[2024-07-31] MEDS: NS 1,000 ML IV SCH (02:18)
[2024-07-31 06:45] VITALS: BP 91/53; O2SAT 94
[2024-07-31] MEDS: PIPERACILLIN/TAZOBACTAM SOD 4.5 GM in DEXTROSE 5% (D5W) ADV/MINI-BAG 50 ML IV SCH (06:58)
== END 2024-07-31 07:02 | disposition short-term general hospital (02) ==
LOC: M ED 18:49 → EDBD 18:49 → M ED 07-31 07:02
DX: K81.0 Acute cholecystitis (principal); R00.0 Tachycardia, unspecified; A41.9 Sepsis, unspecified organism; E11.9 Type 2 diabetes mellitus without complications; K21.9 Gastro-esophageal reflux disease without esophagitis; J44.9 Chronic obstructive pulmonary disease, unspecified; E78.5 Hyperlipidemia, unspecified; F32.A Depression, unspecified; Z85.07 Personal history of malignant neoplasm of pancreas; Z79.51 Long term (current) use of inhaled steroids; Z79.84 Long term (current) use of oral hypoglycemic drugs; Z79.810 Long term (current) use of selective estrogen receptor modulators (SERMs); Z79.899 Other long term (current) drug therapy
CPT/HCPCS: 74177; 80053; 81001; 82248; 83605; 83690; 85025; 86140; 87040; 87077; 87088; 87186; 87486; 87581; 87633; 87798; 93005; 96361; 96374; 96375; 99285; J2405; J2543; Q9967